=== PATIENT | male | born 1935 | race Caucasian/White ===

== ENCOUNTER 2016-11-14 11:22 | Inpatient (IN) | payer OTHER, BC ==
[2016-11-14] VITALS (10 sets, daily range): BP systolic 118–164; BP diastolic 63–84
[~2016-11-14] VITALS: Ht 182.9 cm; Wt 102.1 kg
--- NOTE | ~2016-11-14 | H ---
[facility] [place] [address] HISTORY AND PHYSICAL Name: MINGO PEACE Room #: 240-P [facility] IN M.R.#: [id number] Admission: 11/14/16 Attend Phys: Dannie Burns MD, Discharge: 11/16/16 Date of : 34 Report #: [id number] THIS REPORT FOR: //name// CC: Ranjeet Burns He is in the CCU 219 HISTORY OF PRESENT ILLNESS: An 81-year-old male admitted from the office today after having 2 weeks of progressive right calf and foot pain. The ultrasound suggested total occlusion of the right SFA, which had been previously stented and had lysis previously, but the last intervention was a year ago, it was upper popliteal. There was prior right SFA and upper popliteal stent grafts in place and they were looked at as recently as the end of September here in the office. He has been maintained on warfarin and Plavix. Although he states that he had stopped his Plavix, I will try to clarify this. But his INR is 2.3 today. He has otherwise been compliant with his medications, some rest discomfort, some coolness, but certainly no numbness or tingling, no neurologic involvement and predominantly symptoms with exertion. So not as symptomatic as he has been in the past. He has had TPA lysis in the past of this, prior to the covered stent placement. There is known occlusion of the right mid anterior tibial artery. He denies any chest pain or anginal complaints. HOME MEDICATIONS: Warfarin; hydrochlorothiazide 12.5; irbesartan 300, Plavix 75, which he may or may not be taking; Coreg 3.125 b.i.d.; Symbicort; Spiriva; omeprazole; potassium; simvastatin 80. PAST MEDICAL HISTORY: Positive for the peripheral vascular disease as stated above with complex revisions of the right SFA and popliteal stents with prior atherectomy and drug-coated balloon initially in 06/16 and then last occlusion was 02/2016 with lysis and then placement of a Viabahn stent, COPD, alcohol, prior tobacco use, BPH, vitamin D deficiency and the carotid disease. ALLERGIES: ANTHONY. FAMILY HISTORY: Negative for premature coronary disease. SOCIAL HISTORY: Prior smoker ____ tobacco, moderate alcohol use. He is retired. No illicit drug use. REVIEW OF SYSTEMS: Essentially negative except for some intermittent right foot pain as described above and some nocturia. PHYSICAL EXAMINATION: VITAL SIGNS: Pulse is 70s, blood pressure 136/80. HEENT: Eyes reveal xanthelasmas. Pharynx is clear. NECK: Shows preserved upstrokes without JVD or bruit. There is a bruit noted [facility] [address] [place] [address] HISTORY AND PHYSICAL Name: MINGO PEACE Room #: 240-P DIS IN M.R.#: [id number] Admission: 11/14/16 Attend Phys: Dannie Burns MD, Discharge: 11/16/16 Date of : 34 Report #: [id number] on the left carotid. LUNGS: Prolonged expiratory phase, but clear. CARDIOVASCULAR: Regular rate and rhythm, S1, S2. ABDOMEN: Soft. No HSM or abdominal bruit. EXTREMITIES: Slightly cool right foot. I cannot palpate the DP or PT on the right, fairly palpable on the left, it is not mottled although slightly more pallor than the left foot. MUSCULOSKELETAL: Generalized arthritic changes. NEUROLOGIC: Intact. ASSESSMENT: 1. Acute/subacute right lower extremity arterial occlusion with history as described above with prior multiple coated stents and revisions. 2. Moderate bilateral carotid disease with a right carotid bruit. 3. Chronic obstructive pulmonary disease, prior tobacco. 4. Hypertension. 5. Hypercholesterolemia. 6. Benign prostatic hypertrophy. RECOMMENDATIONS AND PLAN: We will admit, give vitamin K low dose 5 mg, proceed to the interventional lab with Dr. Kaur for evaluation and possible lysis. Stat laboratory work to be obtained, will admit to the telemetry unit and follow with you. Discussed with the patient in detail and he elects to proceed in this fashion. <ELECTRONICALLY SIGNED> By: Dannie Burns MD, FACC 11/24/16 1232 1433 1505 Dannie Burns MD, FACC /nt
--- NOTE | ~2016-11-14 | D ---
[facility] [place] [address] DISCHARGE SUMMARY Name: MINGO PEACE Room #: [facility] [place] IN M.R.#: [id number] Admission: 11/14/16 Attend Phys: Dannie Burns MD, Discharge: 11/16/16 Date of : 34 Report #: [id number] THIS REPORT FOR: //name// CC: Ranjeet Burns [facility]: The patient is an 81-year-old male who was admitted with an acute/subacute right lower extremity arterial occlusion at the proximal SFA, previously stented. This has been patent for a year. He has been maintained on Plavix and warfarin, had been therapeutic. Diuretic had been recently added. It is not clear as to the inciting incident. Subsequently taken to the interventional lab by Dr. Kaur and had line placement for lysis. This markedly improved the following morning and then successfully redilated and stented. So there was right SFA and popliteal thrombolysis, and then subsequently placement of a 7 x 150 Viabahn stent graft and postdilated to high pressures. There was good flow throughout the SFA and popliteal with 2-vessel runoff. He has been maintained on heparin and warfarin restarted as well as Plavix. His INR is 1.2. He will be given Lovenox b.i.d. to overlap his INR until he is over 2, for at least 2 days. Continue with the antiplatelet regimen. His other home medications will also be restarted. He has followup in 1 month with a right lower extremity Doppler ____ Dr. Kaur, and has followup with me in 6 months. DISCHARGE MEDICATIONS: Warfarin, carvedilol 6.25 b.i.d., Spiriva, Symbicort, potassium, irbesartan 300, simvastatin 40 and Plavix 75. DISCHARGE DIAGNOSES: 1. Acute right lower extremity arterial occlusion with successful thrombolysis and stent placement. 2. Coronary artery disease. 3. Hypertension. 4. Hypercholesterolemia. 5. Chronic obstructive pulmonary disease. 6. Degenerative joint disease. OTHER RECOMMENDATIONS: No lifting for 48 hours. No lying in tub, Jacuzzi or Chinchilla for a week. <ELECTRONICALLY SIGNED> By: Dannie Burns MD, FACC 11/24/16 1232 0913 1002 Dannie Burns MD, FACC /nt
[~2016-11-14 11:22] MED LIST: ASPIR 8181 M1 PO; AVAPRO300 MG PO; CLOPIDOGREL75 MG PO; COREG6.25 MG PO; COUMADIN 5 MG TA5 M1 PO; ENOXAPARIN100 MG/11 SUBQ; HYDROCHLOROTH12.5 M1 PO; OMEPRAZOLE20 M2 PO; PLAVIX 75 MG TA75 M1 PO; PLAVIX 75 MG TA75 MG PO; POTASSIUM20 PO; PRADAXA150 MG PO; SIMVASTATIN40 MG PO; SPIRIVA INH; SYMBICORT160 MCG/4. INH
[2016-11-14 13:25] LABS: HEMATOCRIT 43.5 % (42.0-52.0); HEMOGLOBIN 14.3 gm/dL (14.0-18.0); MCV 91.1 fL (80.0-100.0); RBC 4.77 mil/uL (4.50-6.00); RDW 15.8 % (10.5-14.5); WBC 5.1 thou/uL (4.0-11.0)
[2016-11-14 13:35] LABS: CREATININE 0.8 mg/dL (0.7-1.3); POTASSIUM 4.1 mmol/L (3.5-5.1)
[2016-11-15] VITALS (41 sets, daily range): BP systolic 115–175; BP diastolic 45–95
[2016-11-15 04:34] LABS: CALCIUM 8.4 mg/dL (8.5-10.1); CREATININE 0.6 mg/dL (0.7-1.3); POTASSIUM 3.6 mmol/L (3.5-5.1)
[2016-11-15 04:44] LABS: HEMATOCRIT 39.3 % (42.0-52.0); HEMOGLOBIN 13.2 gm/dL (14.0-18.0); MCH 30.2 pg (26.0-34.0); MCHC 33.6 g/dL (28.0-37.0); MCV 90.1 fL (80.0-100.0); RBC 4.36 mil/uL (4.50-6.00); RDW 15.5 % (10.5-14.5); WBC 4.8 thou/uL (4.0-11.0)
[2016-11-15 13:58] LABS: INR 1.5; PROTIME 14.8 Seconds (9.3-11.4)
[2016-11-16] VITALS (15 sets, daily range): BP systolic 113–165; BP diastolic 56–81
[2016-11-16 02:56] LABS: HEMATOCRIT 41.7 % (42.0-52.0); HEMOGLOBIN 13.6 gm/dL (14.0-18.0); MCH 29.9 pg (26.0-34.0); MCHC 32.7 g/dL (28.0-37.0); MCV 91.5 fL (80.0-100.0); RBC 4.56 mil/uL (4.50-6.00); RDW 15.7 % (10.5-14.5); WBC 6.5 thou/uL (4.0-11.0)
[2016-11-16 03:03] LABS: CALCIUM 8.4 mg/dL (8.5-10.1); CREATININE 0.7 mg/dL (0.7-1.3); POTASSIUM 3.7 mmol/L (3.5-5.1)
[2016-11-16 08:46] LABS: INR 1.2; PROTIME 12.2 Seconds (9.3-11.4)
[2016-11-16] MEDS ORDERED: ENOXAPARIN100 MG/11 SUBQ (09:07)
[2016-11-16 10:41] LABS: INR 1.2
[2016-11-16 11:33] LABS: APTT 39.4 Seconds (24.5-32.8)
== END 2016-11-16 13:30 | disposition home or self-care (01) | DRG 271 ==
LOC: ICU 11:22 → 2N 11:22 → ICU 17:53
PROVIDERS: Internal Medicine; Internal Medicine Cardiovascular Disease; Nuclear Medicine Nuclear Cardiology; Nurse Practitioner Adult Health
DX: I73.9 Peripheral vascular disease, unspecified (principal); E87.1 Hypo-osmolality and hyponatremia; I25.10 Atherosclerotic heart disease of native coronary artery without angina pectoris; I10 Essential (primary) hypertension; E78.00 Pure hypercholesterolemia, unspecified; J44.9 Chronic obstructive pulmonary disease, unspecified; M19.90 Unspecified osteoarthritis, unspecified site; N40.0 Benign prostatic hyperplasia without lower urinary tract symptoms; R09.89 Other specified symptoms and signs involving the circulatory and respiratory systems; I65.23 Occlusion and stenosis of bilateral carotid arteries; F10.10 Alcohol abuse, uncomplicated; Z87.891 Personal history of nicotine dependence; Z88.8 Allergy status to other drugs, medicaments and biological substances
CPT/HCPCS: 10078

== ENCOUNTER 2018-02-09 12:25 | Emergency (ER) | payer OTHER, BC ==
[~2018-02-09] VITALS: Ht 177.8 cm; Wt 81.7 kg
[~2018-02-09 12:25] MED LIST changes: +ATORVASTATIN CA40 MG PO; +CARDIZEM CD240 MG PO; +COUMADIN 2.5MG2.5 M1 PO; +HYDROCODON-ACE1 EAC7 PO; +PACERONE 200 M200 MG PO; +PREDNISONE 20 M20 MG PO; +TORSEMIDE20 MG PO
[2018-02-09 14:38] VITALS: BP 169/70
== END 2018-02-09 14:45 | disposition home or self-care (01) ==
LOC: ER 12:25
DX: S61.217A Laceration without foreign body of left little finger without damage to nail, initial encounter (principal); I25.10 Atherosclerotic heart disease of native coronary artery without angina pectoris; E78.00 Pure hypercholesterolemia, unspecified; I10 Essential (primary) hypertension; J44.9 Chronic obstructive pulmonary disease, unspecified; E55.9 Vitamin D deficiency, unspecified; N40.0 Benign prostatic hyperplasia without lower urinary tract symptoms; Z95.1 Presence of aortocoronary bypass graft; Z87.891 Personal history of nicotine dependence; Z79.01 Long term (current) use of anticoagulants; W20.8XXA Other cause of strike by thrown, projected or falling object, initial encounter; Y93.89 Activity, other specified; Y92.89 Other specified places as the place of occurrence of the external cause; Y99.8 Other external cause status

== ENCOUNTER 2018-03-06 08:48 | Inpatient (IN) | payer OTHER, BC ==
[2018-03-06] VITALS (8 sets, daily range): BP systolic 157–174; BP diastolic 73–81
[~2018-03-06] VITALS: Ht 182.9 cm; Wt 86.2 kg
--- NOTE | ~2018-03-06 | EKG ---
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 : 1935 Requested By: Bryant Galindo Order Number: [id number] MD: Giovani Hodge Measurements Intervals Hulen Rate: 70 P: 12 MI: 196 QRS: -8 QRSD: 101 T: 25 QT: 451 QTc: 487 Interpretive Statements Sinus rhythm Left ventricular hypertrophy Borderline prolonged QT interval Compared to ECG 08/15/2017 13:28:29 Sinus rhythm has replaced atrial fibrillation Electronically Signed On 03-06-2018 16:36:21 [employer] by Giovani Hodge [email or web address] <ELECTRONICALLY SIGNED> By: Giovani Hodge MD, [facility] 03/06/18 1636 0905 0905 Giovani Hodge MD, [facility] /EPI
--- NOTE | ~2018-03-06 | EKG ---
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 : 1935 Requested By: Dannie Burns Order Number: [id number] MD: Giovani Hodge Measurements Intervals Jensen Rate: 65 P: 44 IA: 206 QRS: -6 QRSD: 103 T: 39 QT: 428 QTc: 445 Interpretive Statements Sinus rhythm Abnormal R-wave progression, early transition Borderline T wave abnormalities Compared to ECG 03/06/2018 09:05:26 T-wave abnormality now present Electronically Signed On 03-07-2018 9:11:17 [employer] by Giovani Hodge [email or web address] <ELECTRONICALLY SIGNED> By: Giovani Hodge MD, [facility] 03/07/18910 4 4 Giovani Hodge MD, [facility] /EPI
--- NOTE | ~2018-03-06 | HC ---
[facility] [place] [address] CONSULTATION Name: MINGO PEACE Room #: 361-P [facility] IN M.R.#: [id number] Admission: 03/06/18 Attend Phys: Mateo Molina MD Discharge: 03/08/18 Date of : 34 Report #: [id number] THIS REPORT FOR: //name// CC: Mateo Iqbal DATE OF SERVICE: 03/07/2018 CHIEF COMPLAINT: Lacerations to the face and hands. HISTORY OF PRESENT ILLNESS: This is an 82-year-old male patient who reportedly had fallen, sustaining lacerations to his right hand and right side of his face. He had a previous laceration to his left fifth finger on the volar surface and underwent primary repair. The area has apparently opened again. I have been asked to see him with regard to wound care. The patient seems a little bit confused, but is cooperative. He normally lives at home alone. PAST MEDICAL HISTORY: Atrial fibrillation, hypertension, hyperlipidemia, coronary artery disease or peripheral arterial disease, congestive heart failure, chronic opiate use, recurrent falls with multiple injuries. ALLERGIES: Include none. MEDICATIONS: Include amiodarone, diltiazem, hydrocodone, atorvastatin, Plavix. FAMILY HISTORY: Noncontributory. SOCIAL HISTORY: Positive for alcohol use. He is a former smoker, having smoked a pack and half per day for 40 years. FAMILY HISTORY: Noncontributory. REVIEW OF SYSTEMS: CONSTITUTIONAL: The patient denies fever, chills or weight loss. NEUROLOGICAL: The patient denies focal weakness, numbness or tingling. EYES: The patient denies visual changes, redness or drainage. ENT: The patient denies earache, nasal drainage or sore throat. CARDIOVASCULAR: The patient denies chest pain, palpitation or diaphoresis. PULMONARY: The patient denies cough or shortness of breath. GASTROINTESTINAL: The patient denies nausea, vomiting or abdominal pain. ORTHOPEDIC: The patient does note pain and swelling to his right hand. Other systems in a 14-point review of systems are negative. PHYSICAL EXAMINATION: VITAL SIGNS: At this time include pulse 70, respiratory rate of 20, blood [facility] [address] [place] [address] CONSULTATION Name: MINGO PEACE Room #: 361-P [facility] IN M.R.#: [id number] Admission: 03/06/18 Attend Phys: Mateo Molina MD Discharge: 03/08/18 Date of : 34 Report #: [id number] pressure 154/76, temperature 98.3. GENERAL: This is a chronically ill-appearing male patient who appears to be in minimal distress. HEENT: Head normocephalic. Nose and throat are clear. Facial structures are stable. He has a small laceration to his right zygomatic region that appears to be relatively superficial with minimal bleeding. NECK: Supple. LUNGS: Clear. HEART: Irregular. ABDOMEN: Soft. Bowel sounds are present. EXTREMITIES: Show a partially healed laceration with some separation on the volar aspect of the left fifth finger. He has multiple lacerations to the third, fourth, and fifth fingers of the right hand. NEUROLOGIC: The patient is alert, oriented, and appropriate. LABORATORY DATA: Includes sodium 138, potassium 3.3, chloride 106, CO2 27, BUN 20, creatinine 1.0, glucose 86, calcium is 8.3. INR is 1.7. White blood cell count is 4.8 with hemoglobin 10.3. CLINICAL IMPRESSION: Laceration to the face, right hand, and older laceration to the left hand. RECOMMENDATIONS: At this point in time, we will recommend topical bacitracin ointment to the face and otherwise left open to air. Recommend Xeroform gauze and bacitracin ointment to the right hand, as well as to the left hand laceration. I think this will heal up quite well without any further corrective intervention. All questions have been answered. I appreciate having been asked to see him in consultation. <ELECTRONICALLY SIGNED> By: Vinay Langston MD 03/10/18 0018 [id number] 0005 Vinay Langston MD /nt
--- NOTE | ~2018-03-06 | 2DMMODE ---
[facility] [address] [place] [address] 2 D/M-MODE ECHOCARDIOGRAM Name: MINGO PEACE Room #: 361-P ADM IN M.R.#: [id number] Admission: 03/06/18 Attend Phys: Mateo Molina MD Discharge: Date of : 34 Date of Service: 03/07/18 [facility] Report #: [id number] THIS REPORT FOR: //name// APPROVED REPORT Study performed: 03/07/2018 10:35:47 EXAM: Comprehensive 2D, Doppler, and color-flow Echocardiogram Patient Location: Bedside Room #: 361 Status: routine BSA: 2.08 HR: 64 bpm BP: 151/71 mmHg Rhythm: NSR Other Information Study Quality: Good Indications Dizzy. Hx: CAD, PAF, PVD, COPD, HTN, HLP 2D Dimensions RVDd: 40.80 mm IVSd: 13.46 (7-11mm) LVOT Diam: 22.37 (18-24mm) LVDd: 45.98 mm PWd: 10.39 (7-11mm) Ascending Ao: 33.84 (22-36mm) LVDs: 29.25 (25-40mm) Aortic Root: 34.66 mm Volumes Left Atrial Volume (Systole) Single Plane 4CH: 71.48 mL Single Plane 2CH: 76.67 mL LA ESV Index: 38.00 mL/m2 Aortic Valve AoV Peak José.: 3.50 m/s AO Peak Gr.: 49.07 mmHg LVOT Max P.40 mmHg AO Mean Gr.: 25.33 mmHg AO V2 Mean: 2.39 m/s LVOT Max V: 1.26 m/s AO V2 VTI: 86.06 cm RANDALL Vmax: 1.42 cm2 Mitral Valve E/A Ratio: 0.8 [facility] [address] [place] [address] 2 D/M-MODE ECHOCARDIOGRAM Name: GAEB PEACEN Room #: 361-P ADM IN M.R.#: [id number] Admission: 03/06/18 Attend Phys: Mateo Molina MD Discharge: Date of : 34 Date of Service: 03/07/18 1300 Report #: [id number] MV Decel. Time: 197.11 ms MV E Max José.: 0.84 m/s MV A José.: 0.99 m/s MV PHT: 57.16 ms IVRT: 69.20 ms Pulmonary Valve PV Peak José.: 0.93 m/s PV Peak Gr.: 3.44 mmHg Pulmonary Vein P Vein S: 0.44 m/s P Vein A: 0.32 m/s P Vein D: 0.37 m/s P Vein A Dur.: 115.3 msec P Vein S/D Ratio: 1.19 Tricuspid Valve TR Peak José.: 3.12 m/s RAP Estimate: 10.00 mmHg TR Peak Gr.: 38.88 mmHg PA Pressure: 49.00 mmHg Left Ventricle The left ventricle is normal size. There is normal LV segmental wall motion. Mild basal septal hypertrophy is present. Left ventricular systolic function is normal. LVEF is 60-65%. Mild diastolic dysfunction is present (impaired relaxation pattern). Right Ventricle The right ventricle is normal size. The right ventricular systolic function is normal. Atria Left atrium is mildly dilated. Right atrium is mildly dilated. Aortic Valve Aortic valve leaflets are moderately thickened and calcified. Mild aortic regurgitation. There is moderate valvular aortic stenosis. Calculated aortic valve area is 1.4 cm2 with maximum pressure gradient of 49 mmHg and mean pressure gradient of 25 mmHg. Mitral Valve Mild mitral annular calcification. Mild mitral regurgitation. No evidence of mitral valve stenosis. Tricuspid Valve The tricuspid valve is normal in structure. Mild to moderate tricuspid regurgitation. Estimated PAP is 45mmHg. [facility] [address] [place] [address] 2 D/M-MODE ECHOCARDIOGRAM Name: MINGO PEACE Room #: 361-P [facility] IN M.R.#: [id number] Admission: 03/06/18 Attend Phys: Mateo Molina MD Discharge: Date of : 34 Date of Service: 03/07/18 [facility] Report #: [id number] Pulmonic Valve The pulmonary valve is normal in structure. Trace pulmonic regurgitation. Great Vessels The aortic root is normal in size. The ascending aorta is normal in size. IVC is normal in size and collapses <50% with inspiration. Pericardium There is no pericardial effusion. <Conclusion> Left ventricular systolic function is normal. There is normal LV segmental wall motion. LVEF is 60-65%. Mild diastolic dysfunction Both atria are mildly dilated. Aortic valve leaflets are moderately thickened and calcified, moderate valvular aortic stenosis, mild insufficiency. Calculated aortic valve area is 1.4 cm2 with maximum pressure gradient of 49 mmHg and mean pressure gradient of 25 mmHg. Mild mitral annular calcification. Mild mitral regurgitation. Mild to moderate tricuspid regurgitation. Estimated pulmonary artery pressure of 45mmHg. There is no pericardial effusion. <ELECTRONICALLY SIGNED> By: Giovani Hodge MD, FACC 03/07/18 1300 1300 Chandra Hodge MD, FACC /INF
--- NOTE | ~2018-03-06 | HC ---
[facility] [place] [address] CONSULTATION Name: MINGO PEACE Room #: 361-P ADM IN M.R.#: [id number] Admission: 03/06/18 Attend Phys: Mateo Molina MD Discharge: Date of : 34 Report #: [id number] THIS REPORT FOR: //name// CC: Mateo Iqbal DATE OF SERVICE: 03/07/2018 HISTORY OF PRESENT ILLNESS: This is an 82-year-old white male, who had a fall in a parking lot. He denies any loss of consciousness. He sustained multiple bruises with striking his face, right hand, elbow. He did not initially come in, but his son checked in on him the following day and brought him in for evaluation. He is on Coumadin for AFib and his INR was increased to 4.6. Cardiology saw him. It was felt that the fall was likely due to probable pain medication along with ETOH. He did report one shot of whiskey on the evening of the fall. The patient denies any specific loss of consciousness. He reports some dizziness, but appears to be feeling better. He is now being evaluated in rehabilitation consultation. PAST MEDICAL HISTORY: Includes atrial fibrillation, hypertension, hyperlipidemia, coronary artery disease, history of peripheral vascular disease with peripheral arterial disease, CHF, chronic back pain with opioid usage, and history of recurrent falls. MEDICATIONS: Please see the full medication listing. ALLERGIES: No known drug allergies. SOCIAL HISTORY: He lives in a house by himself. He used a cane one step in, was driving one floor. There is a son that is involved. REVIEW OF SYSTEMS: He did not offer any current complaints of chest pain, shortness of breath, or abdominal discomfort. He has some discomfort regarding his face and hand as expected. No other specific focal extremity pain complaints. He does have the chronic low back pain. PHYSICAL EXAMINATION: GENERAL: The patient is an 82-year-old white male in no obvious distress. VITAL SIGNS: Last recorded temperature is 97.9, pulse is 65, respirations 18, and blood pressure is 151/71. NEUROLOGIC: He is alert, pleasant, appropriate, follows commands without difficulty. He has ecchymoses noted over his right maxillary area. EOMs appeared to be full. No obvious visual field neglect. Facies appeared symmetric. His right hand is wrapped or he had some trauma to the fourth and fifth digits. This appears to be superficial trauma with dressings in place. I could not detect any obvious focal weakness. He otherwise has functional range [facility] [address] [place] [address] CONSULTATION Name: MINGO PEACE Room #: 361-P [facility].#: [id number] Admission: 03/06/18 Attend Phys: Mateo Molina MD Discharge: Date of : 34 Report #: [id number] of motion of both upper extremities. Strength is grade 4-/5. DTRs are trace to 1. Lower extremities, no focal calf swelling. Functional range of motion with strength grade 4-/5. DTRs are trace to 1. In occupational therapy, he did ambulate to the bathroom. He was contact guard to min assist. He is demonstrating some decreased balance. ASSESSMENT: The patient is an 82-year-old white male with following problem list: 1. Closed head injury with dizziness and fall. No noted loss of consciousness. 2. Hematoma, right maxillary area involving right eye, multiple lacerations. 3. History of frequent falls, 3 in the past year. 4. ETOH usage limited per report. 5. Atrial fibrillation, he is anticoagulated. 6. Hypertension. 7. Hyperlipidemia. 8. Peripheral vascular disease with peripheral arterial disease. 9. History of congestive heart failure. 10. Chronic back pain with opioid usage. PLAN: Therapy evaluations are underway. We will see how the patient does functionally and proceed from there. He is hoping to return directly home, but we will need to see how he does in therapies. Thank you for asking us to assist in this patient's care. By: 1324 0147 Wilfredo Goldberg MD /KAIT
[2018-03-06 09:06] LABS: ABSOLUTE NEUTROPHILS 4.9 thou/uL (1.4-8.2); BASOPHILS 0.6 % (0.0-2.0); HEMATOCRIT 35.1 % (42.0-52.0); MCH 31.6 pg (26.0-34.0); MCHC 34.1 g/dL (28.0-37.0); MCV 92.8 fL (80.0-100.0); MONOCYTES 6.2 % (1.0-8.0); PLATELET COUNT 177 thou/uL (150-400); POLYS 81.2 % (36.0-66.0); RBC 3.78 mil/uL (4.50-6.00); RDW 14.4 % (10.5-14.5); WBC 6.1 thou/uL (4.0-11.0)
[2018-03-06 09:13] LABS: ANION GAP 8 mmol/L (7-16); BUN 22 mg/dL (7-18); CALCIUM 9.1 mg/dL (8.5-10.1); CHLORIDE 104 mmol/L (98-107); CO2 28 mmol/L (21-32); GLUCOSE 98 mg/dL (74-106); POTASSIUM 3.4 mmol/L (3.5-5.1); SODIUM 140 mmol/L (136-145)
[2018-03-06 09:18] LABS: PROTIME 47.8 Seconds (9.3-11.4)
[2018-03-06 09:21] LABS: ALBUMIN 3.2 g/dL (3.4-5.0); SGOT 52 U/L (15-37); SGPT 101 U/L (30-65); TOTAL BILIRUBIN 1.1 mg/dL (<0.1-1.0); TOTAL PROTEIN 7.2 g/dL (6.4-8.2); TROPONIN-I <0.06 ng/mL (<0.06)
[2018-03-06 09:23] LABS: INR 4.6
[2018-03-06] MEDS ORDERED: COUMADIN 5 MG TA5 M1 PO (10:21)
[2018-03-06] MEDS ORDERED: BISACODYL SUPP10 MG RECTAL (10:22)
[2018-03-06] MEDS ORDERED: LIDODERM1 EACH TOP (10:26)
[2018-03-06] MEDS ORDERED: MIRALAX17 GM PO (10:27)
[2018-03-06] MEDS ORDERED: PREVACID 24HR15 MG PO (10:29)
[2018-03-06] MEDS ORDERED: SENNA-S TABLET1 EACH PO (10:30)
[2018-03-06] MEDS ORDERED: DEMADEX20 MG PO (10:31)
[2018-03-06] MEDS ORDERED: TUMS200 MG PO (10:32)
[2018-03-06] MEDS ORDERED: VITAMIN B-121000 MC1 PO (10:33)
[2018-03-06 12:57] LABS: URINE BILIRUBIN NEGATIVE (Negative); URINE BLOOD TRACE (Negative); URINE COLOR YELLOW; URINE GLUCOSE-RANDOM* NEGATIVE (Negative); URINE KETONES 1+ (Negative); URINE PROTEIN (DIPSTICK) TRACE (Negative); URINE SPECIFIC GRAVITY 1.025 (1.005-1.035)
[2018-03-06 12:59] LABS: URINE LEUKOCYTES-REFLEX TRACE (Negative); URINE NITRITE-REFLEX POSITIVE (Negative)
[2018-03-06 13:00] LABS: URINE CLARITY SL HAZY
[2018-03-06 13:08] LABS: AMP/METHAMP Negative (Negative); BARBITURATES Negative (Negative); BENZODIAZEPINES Negative (Negative); COCAINE Negative (Negative); METHADONE Negative (Negative); OPIATES POSITIVE (Negative); PCP Negative (Negative)
[2018-03-06 13:11] LABS: SQUAMOUS None Seen /LPF (0-3)
[2018-03-06 13:12] LABS: BACTERIA-REFLEX >30 Many /HPF (None Seen); CASTS None Seen /LPF (None Seen); CRYSTALS None Seen /LPF (None Seen); URINE RBC 0-2 Rare /HPF (0-2)
[2018-03-06] MEDS ORDERED: PREVACID15 MG PO (13:20)
[2018-03-06 14:11] LABS: MAGNESIUM 1.9 mg/dL (1.8-2.4)
[2018-03-07 05:47] LABS: ABSOLUTE NEUTROPHILS 3.7 thou/uL (1.4-8.2); EOSINOPHILS 1.5 % (0.0-3.0); HEMOGLOBIN 10.2 gm/dL (14.0-18.0); MCH 31.8 pg (26.0-34.0); MCHC 33.8 g/dL (28.0-37.0); MCV 94.1 fL (80.0-100.0); MONOCYTES 8.4 % (1.0-8.0); PLATELET COUNT 169 thou/uL (150-400); POLYS 69.1 % (36.0-66.0); RBC 3.19 mil/uL (4.50-6.00); RDW 14.9 % (10.5-14.5); WBC 5.4 thou/uL (4.0-11.0)
[2018-03-07 05:59] LABS: CALCIUM 8.3 mg/dL (8.5-10.1); MAGNESIUM 1.9 mg/dL (1.8-2.4); POTASSIUM 3.3 mmol/L (3.5-5.1)
[2018-03-07 06:01] LABS: INR 3.4; PROTIME 35.3 Seconds (9.3-11.4)
[2018-03-07 07:48] VITALS: BP 151/71
[2018-03-07 16:02] VITALS: BP 182/84
[2018-03-07 16:09] VITALS: BP 158/70
[2018-03-07 19:30] VITALS: BP 127/67
[2018-03-07 19:40] VITALS: BP 154/76
[2018-03-08 05:00] VITALS: BP 149/74
[2018-03-08 05:54] LABS: ABSOLUTE NEUTROPHILS 3.3 thou/uL (1.4-8.2); BASOPHILS 0.9 % (0.0-2.0); EOSINOPHILS 2.1 % (0.0-3.0); HEMATOCRIT 29.7 % (42.0-52.0); HEMOGLOBIN 10.3 gm/dL (14.0-18.0); LYMPHOCYTES 21.7 % (24.0-44.0); MCH 32.9 pg (26.0-34.0); MCHC 34.8 g/dL (28.0-37.0); MCV 94.5 fL (80.0-100.0); MONOCYTES 7.4 % (1.0-8.0); PLATELET COUNT 165 thou/uL (150-400); POLYS 67.9 % (36.0-66.0); RBC 3.14 mil/uL (4.50-6.00); WBC 4.8 thou/uL (4.0-11.0)
[2018-03-08 05:59] LABS: INR 2.5; PROTIME 26.4 Seconds (9.3-11.4)
[2018-03-08 07:25] VITALS: BP 145/70
[2018-03-08 09:17] LABS: SGOT 40 U/L (15-37); SGPT 75 U/L (30-65)
[2018-03-08 16:44] VITALS: BP 162/73
== END 2018-03-08 18:06 | DRG 604 ==
LOC: ER 08:48 → EROBS 11:24 → 3W 11:24
PROVIDERS: Hospitalist; Nurse Practitioner; Nurse Practitioner Adult Health; Physician Assistant
PROC: 0HQ1XZZ Repair Face Skin, External Approach (ICD-10-PCS; principal; 2018-03-06)
DX: S01.81XA Laceration without foreign body of other part of head, initial encounter (principal); E43 Unspecified severe protein-calorie malnutrition; N39.0 Urinary tract infection, site not specified; F11.20 Opioid dependence, uncomplicated; M84.48XA Pathological fracture, other site, initial encounter for fracture; S61.411A Laceration without foreign body of right hand, initial encounter; E78.00 Pure hypercholesterolemia, unspecified; J44.9 Chronic obstructive pulmonary disease, unspecified; N40.0 Benign prostatic hyperplasia without lower urinary tract symptoms; M51.36 Other intervertebral disc degeneration, lumbar region; I73.9 Peripheral vascular disease, unspecified; I11.0 Hypertensive heart disease with heart failure; G89.29 Other chronic pain; M54.9 Dorsalgia, unspecified; I50.9 Heart failure, unspecified; I25.10 Atherosclerotic heart disease of native coronary artery without angina pectoris; S09.90XA Unspecified injury of head, initial encounter; H57.89 Other specified disorders of eye and adnexa; E78.5 Hyperlipidemia, unspecified; E87.6 Hypokalemia; Z60.2 Problems related to living alone; I65.29 Occlusion and stenosis of unspecified carotid artery; I48.0 Paroxysmal atrial fibrillation; R29.6 Repeated falls; K21.9 Gastro-esophageal reflux disease without esophagitis; K59.00 Constipation, unspecified; W18.39XA Other fall on same level, initial encounter; Y93.89 Activity, other specified; Y92.89 Other specified places as the place of occurrence of the external cause; Y99.8 Other external cause status; Z87.891 Personal history of nicotine dependence; Z79.01 Long term (current) use of anticoagulants; Z95.820 Peripheral vascular angioplasty status with implants and grafts; Z86.718 Personal history of other venous thrombosis and embolism; Z68.25 Body mass index [BMI] 25.0-25.9, adult
CPT/HCPCS: 10879

== ENCOUNTER 2018-03-08 10:27 | Inpatient (IN) | payer OTHER, BC ==
[~2018-03-08] VITALS: Ht 182.9 cm; Wt 92.1 kg
[~2018-03-08 10:27] MED LIST changes: +BISACODYL SUPP10 MG RECTAL; +DEMADEX20 MG PO; +LIDODERM1 EACH TOP; +MIRALAX17 GM PO; +PREVACID 24HR15 MG PO; +PREVACID15 MG PO; +SENNA-S TABLET1 EACH PO; +TUMS200 MG PO; +VITAMIN B-121000 MC1 PO
[2018-03-08 18:21] VITALS: BP 165/72
--- NOTE | 2018-03-08 18:47 | NUR ---
TO UNIT FROM 361 BY WC, ACCOMPANIED BY VOLUNTEER. ORIENTED TO UNIT. MED LIST FAXED TO PHARMACY. ADMISSION STARTED.
--- NOTE | 2018-03-09 02:17 | NUR ---
ASSUMED CARE AT START OF SHIFT ,DISCUSSED PLAN OF CARE PT VERBALIZED UNDERSTANDING AND AGREEABLE. RIGHT HAND WITH DRESING INTACT. PT C/O BACK PAIN , CALLED AND RECIEVED ORDER FOR TRAMADOL. RESTED WELL THROUGHOUT HOURLY ROUNDS. WILL CONINUTE WITH CURREMT PLAN OF CARE.
[2018-03-09 06:11] LABS: HEMATOCRIT 32.4 % (42.0-52.0); HEMOGLOBIN 11.1 gm/dL (14.0-18.0); MCH 31.9 pg (26.0-34.0); MCHC 34.2 g/dL (28.0-37.0); MCV 93.4 fL (80.0-100.0); RBC 3.46 mil/uL (4.50-6.00); RDW 15.2 % (10.5-14.5); WBC 5.7 thou/uL (4.0-11.0)
[2018-03-09 06:16] LABS: INR 1.7; PROTIME 17.5 Seconds (9.3-11.4)
[2018-03-09 06:19] LABS: CALCIUM 8.9 mg/dL (8.5-10.1); POTASSIUM 3.1 mmol/L (3.5-5.1)
[2018-03-09 08:10] VITALS: BP 127/77
[2018-03-09 08:15] VITALS: BP 120/63
[2018-03-09 08:20] VITALS: BP 138/88
--- NOTE | 2018-03-09 13:00 | NUR ---
cm visited with pt at bedside. intro to team meeting, and dcp. goes by bud, pleasant with some forgetfulness. " home alone, 1 step in to home, then 13 with hr to basement and don't go down there. have cane for outside home. have grab bars. no home oxygen or btx machine. still drive. manage own medication. been to rehab over by facility [facility]. drt and son in area and help if needed. run own errands. still cook. 1 fall last in last 6 months."/ema. will cont following as needed for dc needs.
--- NOTE | 2018-03-09 17:32 | NUR ---
WOUND CONSULT: PT. WAS SEEN TODAY BY DR. SOTO AND MYSELF. PT. WAS BEING FOLLOWED ON THE ACUTE SIDE OF THE HOSPITAL PRIOR TO TRANSFER. PT. HAS LACERATIONS TO HIS RIGHT CHEECK, RIGHT HAND AND LEFT PINKY. ALL WOUNDS ARE HEALING WELL. RECOMMENDATION: CONTINUE WITH CURRENT PLAN OF CARE. PT. AND STAFF NURSE WERE INSTRUCTED ON PLAN OF CARE.
--- NOTE | 2018-03-09 19:54 | NUR ---
ASSUME PT CARE AT 0700. ALERT AND ORIENTED X4, TELIDA, ABLE TO VOICE HIS NEEDS. C/O MID BACK PAIN. RATED PAIN 8/10, GAVE PRN TRAMADOL FELT SOME RELIEF BUT NOT MUCH. POTASSIUM 3.1 NOTIFIED , OBTAINED SCHEDULED POTASSIUM 40MEG BID. RECEIVED ORDER FOR HYDROCODONE. GAVE HYDROCODONE, PAIN GETS BETTER AND DOWN TO 4/10, LACERATION ON CHEEK, LEFT PINKY AND RIGHT HAND. WOUND NURSE CAME TO SEE PT TODAY, GAVE ORDER FOR BACTROBAN. INR DAILY 1.7 TODAY. REASSESSMENT PER CHART. LAST BM WAS 5 DAYS AGO. GAVE COLACE, SENOKOT PRN AND MIRALAX SCHEDULED WITH PRUNE JUICE, PASSING GAS, NO RESULT. IV ON RIGHT WRIST. OT GAVE PT SHOWER TODAY. PT UP AND PARTICIPATED WELL WITH THERAPISTS . PT UP WITH MIN ASSIST WITH WALKER. FALL PRECAUTION IN PLACE, CALL APPROPRIATELY. BED ALARM IS ON. GAVE REPORT TO NIGHT NURSE TO CONTINUE TO MONITOR.
[2018-03-09 21:08] VITALS: BP 163/81
--- NOTE | 2018-03-10 04:27 | NUR ---
PATIENT ALERT AND ORIENTED X4. VERY [place]. UP WITH ONE ASSIST. USING URINAL, NO BM AT TIME OF NOTE. RESTED QUIETLY DURING THE NIGHT. MEDICATED X1 FOR PAIN WITH GOOD RESULTS. 2LNC, NO SOA NOTED. WILL MONITOR.
[2018-03-10 05:36] LABS: INR 1.3
[2018-03-10 07:45] VITALS: BP 136/64
[2018-03-10 07:47] VITALS: BP 116/63
[2018-03-10 07:49] VITALS: BP 126/56
--- NOTE | 2018-03-10 10:41 | NUR ---
ASSUME PT CARE AT 0700. ALERT AND ORIENTED X4, ABLE TO VOICE HIS NEEDS. SLEPT WELL, BUT SAID PT KEPT WAITING ME UP. C/O MID BACK PAIN, PRN TRAMADOL GIVEN. TOLERATE WITH OT AND PT THIS AM. TITRATE OXYGEN THIS AM. DISCUSSED ABOUT DEEP BREATHING. SAT 94 % ON 2L. ENCOURAGED THERAPIST TO CHECK OXYGEN AND APPLY PRN OXYGEN AT 1-2L NEED. REASSESSED PER CHART. PT WAS CONSTIPATED FOR 6 DAYS. GAVE LAXATIVES SCHEDULED AND PRN THIS AM. HAD LARGE SOFT BM THIS AM. PTSAID HE FEELS BETTER. PT IS UP TO RECLINER, WATCHING TV. FALL PRECAUTION IN PLACE. CHAIR ALARM IS ON. ENCOURAGED PT TO CALL FOR HELP. CALL LIGHT WITHIN REACH. PT HAS [place], WEARING HEARING AIDS. WOUND CARE DONE PER ORDERED. CHECK FREQUENTLY FOR SAFETY AND NEEDS. HIS GOALS TODAY ARE TO WORK WITH STAFF TO GET STRONGER. WILL CONTINUE TO MONITOR.
[2018-03-10 19:35] VITALS: BP 144/73
--- NOTE | 2018-03-11 04:17 | NUR ---
ASSUMED CARE OF PT AT 1915. PT ALERT AND ORIENTED X4, CALM AND COOPERATIVE. C/O BACK PAIN X1, OXYCODONE GIVEN AT HS WITH GOOD RELIEF STATED. RIGHT HAND DRSG C/D/I. PT HAS APPEARED TO BE SLEEPING WHEN CHECKED ON HOURLY ROUNDS. FALL PRECAUTIONS IN PLACE.
[2018-03-11 07:07] LABS: INR 1.2; PROTIME 12.6 Seconds (9.3-11.4)
[2018-03-11 08:00] VITALS: BP 149/72
[2018-03-11 08:02] VITALS: BP 142/71; BP 151/70
--- NOTE | 2018-03-11 12:07 | NUR ---
ASSUMED PT CARE AT 0700H. PT VOICES NO CONCERNS. PT GOAL IS MAINTAIN PAIN CONTROL. PT HAS NO S/S OF DISTRESS. PT R. CHEECK PAUL CLEAN AND DRY. PT R. HAND AND L. FINGER DRG CHANGE; CLEAN, DRY AND INTACT. PT AMBULATED TO THE CHEW WAY. PT TRANSFERED TO CHAIR AND BACK TO BED. PT BED ALARM ON AND FALL PRECAUTION. PT CALL LIGHT AND PERSONAL BELONGINGS WITHIN REACH. PT CONTINUES TO BE MONITORED FOR SAFETY.
[2018-03-11 17:28] VITALS: BP 136/58
[2018-03-11 20:19] VITALS: BP 146/55
--- NOTE | 2018-03-11 22:47 | NUR ---
PT ALERT AND ORIENTED X 4. 02 ON AT 1L PER NC CONT. LUNGS WITH WHEEZES ANTERIORLY. DRESSINGS TO RIGHT HAND AND LEFT FINGER C/D/I. PT DENIES PAIN OR DISCOMFORT. BED ALARM ON FOR SAFETY. PT APPEARS TO BE SLEEPING ON HOURLY ROUNDS.
[2018-03-12 04:10] LABS: INR 1.2; PROTIME 12.5 Seconds (9.3-11.4)
[2018-03-12 08:16] VITALS: BP 143/75
--- NOTE | 2018-03-12 09:25 | NUR ---
ASSUME PT CARE AT 0700. [place], ALERT AND ORIENTED X4, ABLE TO VOICE HIS NEEDS. REPORTED DIDN'T SLEEP WELL LAST NIGHT. NIGHT NURSE SAID HE DIDN'T ASK FOR ANYTHING FOR PAIN AND SLEEP LAST NIGHT. PT RATED BACK PAIN 4/10 THIS AM. AND PAIN INCREASE TO 8/10 WHEN GOT UP. MORNING MEDS AND OXYCODONE PRN GIVEN. DESAT 90 % ON RA. ENCOURAGED THERAPIST TO CHECK OXYGEN AND APPLY PRN OXYGEN AT 1-2L NEED. REASSESSED PER CHART. PT HAS HX OF CONSTIPATION. GAVE LAXATIVES SCHEDULED WITH PRUNE JUICE. REASSESSMENT PER CHART. WILL CONTINUE TO MONITOR BM. OT GAVE PT SPONGE BATH AT BEDSIDE. DRESSING ON RIGHT ARM C/D/I. WILL CHANGE LATER. PT IS UP TO RECLINER, WATCHING TV. FALL PRECAUTION IN PLACE. CHAIR ALARM IS ON. ENCOURAGED PT TO CALL FOR HELP. CALL LIGHT WITHIN REACH. PT HAS G[place], WEARING HEARING AIDS. CHECK FREQUENTLY FOR SAFETY AND NEEDS. HIS GOALS TODAY ARE TO WORK WITH STAFF TO GET STRONGER. WILL CONTINUE TO MONITOR.
[2018-03-12 13:51] VITALS: BP 125/57
[2018-03-12 17:14] LABS: CALCIUM 8.7 mg/dL (8.5-10.1); MAGNESIUM 1.9 mg/dL (1.8-2.4); POTASSIUM 4.2 mmol/L (3.5-5.1)
[2018-03-12 19:39] VITALS: BP 159/71
--- NOTE | 2018-03-13 03:16 | NUR ---
Assumed care of pt at 1915. Pt alert and oriented x4, calm and cooperative. Oxygen on at 2 liters through the night, O2 sat on 1 liter=91%. Denies shortness of air at rest, nausea or pain. Has appeared to be sleeping when checked on hourly rounds. Fall precautions in place.
[2018-03-13 07:50] VITALS: BP 142/71
--- NOTE | 2018-03-13 14:20 | NUR ---
team meeting recommendation 24h/supervision, medication management, no driving until cleared by pcp, and home health (pt,ot,st,nursing,sw,aid). will discuss with family to see if needs will be able to me met at home. will meet o2 stat exercise 24-48 hr prior to dc, if returning home. pt has his own cane.
--- NOTE | 2018-03-13 15:59 | NUR ---
WOUND FOLLOW UP: PT. WAS SEEN TODAY BY DR. SOTO AND MYSELF. PT. WOUNDS ARE DRY AND HEALING WELL. WOUND CARE ORDERS WERE UPDATED AT THIS TIME TO LEAVE ALL SITES OPEN TO AIR. RECOMMENDATIONS: CONTINUE WITH CURRENT PLAN OF CARE. PT. AND STAFF NURSE WERE INSTRUCTED ON WOUND CARE.
--- NOTE | 2018-03-13 17:00 | NUR ---
ASSUMED CARE AT 0700, SHIFT ASSESSMENT DONE, MEDS GIVEN, VSS. REPROTED PAIN TO LEFT LOWER EXTREMITY, PRN PAIN MED GIVEN. WORKED WITH PHYSICAL AND OCCUAPTIONAL THERAPHY, DESATURATED TO 84% AT ONE POINT WITH ACTIVITY. O2 WAS INCREASED TO 3L. DENIES ANY SOB. WILL CONTINUE TO ASSESS AND ASSIST WITH ADLs NEEDED.
[2018-03-13 20:05] VITALS: BP 155/83
[2018-03-14 04:44] LABS: ABSOLUTE NEUTROPHILS 6.6 thou/uL (1.4-8.2); BASOPHILS 0.7 % (0.0-2.0); EOSINOPHILS 0.9 % (0.0-3.0); HEMATOCRIT 28.9 % (42.0-52.0); HEMOGLOBIN 9.7 gm/dL (14.0-18.0); LYMPHOCYTES 8.8 % (24.0-44.0); MCH 31.3 pg (26.0-34.0); MCHC 33.4 g/dL (28.0-37.0); MCV 93.8 fL (80.0-100.0); MONOCYTES 5.2 % (1.0-8.0); PLATELET COUNT 223 thou/uL (150-400); POLYS 84.4 % (36.0-66.0); RBC 3.09 mil/uL (4.50-6.00); RDW 15.5 % (10.5-14.5); WBC 7.9 thou/uL (4.0-11.0)
[2018-03-14 05:23] LABS: CALCIUM 8.7 mg/dL (8.5-10.1); MAGNESIUM 1.8 mg/dL (1.8-2.4); POTASSIUM 3.7 mmol/L (3.5-5.1)
--- NOTE | 2018-03-14 05:42 | NUR ---
CONTACTED PHARMACY REGARDING PROTONIX WHICH CAN'T BE CRUSHED, WILL CHANGE IT TO SUSPENSION.
--- NOTE | 2018-03-14 06:06 | NUR ---
PT CAN BE IMPULSIVE, BED ALARM SET AT THE MIDDLE FOR SAFETY, VOIDING PER URINAL, DARK YELLOW URINE, NO SMELL, KEPT ON OXYGEN, RT BUMPED HIM AVA 4.5 L, SATURATION CHECKED IN THE EAR LOBE DUE TO PERIPHERAL ISSUES, REFUSING SCDS, HOURLY ROUNDING, TOLERATING ORAL INTAKE, CALL LIGHT WITHIN REACHED, MONITORED.
[2018-03-14 07:30] VITALS: BP 122/72
--- NOTE | 2018-03-14 07:40 | NUR ---
ASSUMED PT CARE AT 0700. ASSESSED PT AT 0740. PT IN BED, DOES NOT APPEAR IN DISTRESS. O2 AT 6L NASAL CANNULA SAT 93%. PT BREATHING NORMALLY, LUNGS COURSE UPON EXPIRATION. VITAL SIGNS STABLE. PT ALERT AND ORIENTED X4, DENIES PAIN AT THIS TIME. ASSESSMENT IS CHARTED. WILL CONTIUE TO MONITOR RESPIRATORY STATUS AND PAIN CONTROL AND CONTINUE WITH PLAN OF CARE.
[2018-03-14 08:50] LABS: BE(vivo) 2.5 mmol/L (-2 to +3); HCO3 26.9 mmol/L (22.0-26.0); PCO2 40.7 mmHg (35.0-45.0); pH 7.438 (7.360-7.450); sO2 87.2 % (92.0-98.0)
[2018-03-14 08:51] LABS: PO2 50.8 mmHg (80.0-100.0)
--- NOTE | 2018-03-14 09:05 | NUR ---
BLOOD GASES CALLED TO CASE MANAGER SPECIALIST. PT UP IN CHAIR DRESSED. REPORTS SHORTNESS OF BREATH WITH ACTIVITY BUT OTHERWISE IN NO RESPIRATORY DISTRESS. CASE MANAGER SPECIALIST TO SEE PATIENT IN REGARD TO BLOOD GAS RESULTS.
--- NOTE | 2018-03-14 10:30 | NUR ---
PT DISCHARGED VIA WHEELCHAIR. VITAL SIGNS STABLE. 02 @ 6L PER NC.
--- NOTE | 2018-03-15 14:54 | H ---
[facility] [place] [address] HISTORY AND PHYSICAL Name: MINGO PEACE Room #: 510-P [facility] IN M.R.#: [id number] Admission: 03/08/18 Attend Phys: Wilfredo Goldberg MD Discharge: 03/14/18 Date of : 34 Report #: [id number] THIS REPORT FOR: //name// CC: Wilfredo Iqbal DATE OF SERVICE: 03/08/2018 HISTORY AND PHYSICAL AND POSTADMISSION PHYSICIAN EVALUATION: HISTORY OF PRESENT ILLNESS: The patient is an 82-year-old white male who had a fall in a parking lot. He denied loss of consciousness. He sustained multiple bruises with striking his face, right hand, and elbow. He did not initially come into the hospital, but his son checked on him the next day and brought him in for further evaluation. He has a history of atrial fibrillation and was on Coumadin with an elevated INR of 4.6. Cardiology saw him and felt that the fall was likely due to probable pain medication along with ETOH. He did report one shot of whiskey on the evening of the fall. He does note problems with balance and may have sustained a concussion. He had considerable trauma with a large maxillary bruise. He has had some dizziness. He was noted to have decreased balance, cognitive concerns, decreased functional independence and has been admitted now for acute in-hospital inpatient rehabilitation. PAST MEDICAL HISTORY: Atrial fibrillation, hypertension, hyperlipidemia, coronary artery disease, history of peripheral vascular disease with peripheral arterial disease, CHF, chronic back pain with opioid usage, and history of recurrent falls. MEDICATIONS: Please see the full medication listing. ALLERGIES: No known drug allergies. SOCIAL HISTORY: He was premorbidly living in a house by himself. He used a cane one step in, was driving in the community. His house is one floor. There is a son that is involved. REVIEW OF SYSTEMS: No current complaints of chest pain, shortness of breath, abdominal discomfort. He does have discomfort of the right hand. Notes that he has been several days without a bowel movement. This was relayed to nursing. Does have a prior history of chronic back pain. PHYSICAL EXAMINATION: GENERAL: He is a pleasant 82-year-old white male in no obvious distress. VITAL SIGNS: Temperature 97.5, pulse 73, respirations 17, blood pressure 165/72. NEUROLOGIC: The patient is alert, pleasant. He does follow basic 1 step commands. There is some latency to his responses. He is hard of hearing. His right maxillary area is dressed. He has some periorbital [address] [address] HISTORY AND PHYSICAL Name: MINGO PEACE Room #: 510-P [facility] IN M.R.#: [id number] Admission: 03/08/18 Attend Phys: Wilfredo Goldberg MD Discharge: 03/14/18 Date of : 34 Report #: [id number] ecchymosis. EOMs appeared to be full. No obvious visual field neglect to confrontation. CHEST: Sounded clear to auscultation. CARDIOVASCULAR: Regular rate and rhythm. ABDOMEN: Obese, bowel sounds positive, nontender. GENITOURINARY AND RECTAL: Deferred. NEUROLOGIC: His right hand is dressed as he has had some excoriations, which are dressed over the hand and fingers. He has some difficulty moving that hand with some discomfort as expected. I could not detect any focal proximal weakness of that right upper extremity. Left upper extremity revealed functional range of motion, strength is grade 4-/5. Lower extremities, no focal calf swelling, functional range of motion, strength is grade 4-/5. DTRs are trace to 1. He does need assistance with functional mobility issues. He is min assist to come to stand. He has ambulated a short distance min assist with a walker. ASSESSMENT: 1. Closed head injury with dizziness and fall. He may have some postconcussion symptomatology. 2. Hematoma, right maxillary area involving periorbital area as well. 3. Multiple lacerations, excoriations over the right hand and fingers. 4. History of frequent falls, 3 in the past year. 5. Atrial fibrillation for which he has been anticoagulated. 6. History of limited ETOH usage per report. 7. Hypertension. 8. Hyperlipidemia. 9. Peripheral vascular disease with peripheral arterial disease. 10. History of congestive heart failure. 11. Chronic back pain with opioid usage. PLAN: The patient is admitted for acute in-hospital inpatient rehabilitation. From a postadmission physician evaluation perspective, there are no relevant changes since the preadmission screening. Please see the above review of prior and current medical and functional conditions and comorbidities. Please see the patient's previous and current functional status. As far as risk of complications, the patient has multiple medical comorbidities as noted above. The initial plan of care involves the interdisciplinary acute inpatient rehabilitation program with goal of maximizing the patient's functional independence, so that he can hopefully return back to his prior living situation. Measurable functional goals would be for the patient to become modified independent with transfers, mobility, ADLs, and cognition, so he can return back to the home setting. Prognosis is reasonably good with estimated length of stay, probably at least 7-14 days pending his needs. Potential barriers would include his multiple medical comorbidities and decreased functional status. The patient meets diagnostic criteria for an acute in-hospital inpatient rehabilitation stay. The patient meets the medical necessity criteria. He does [facility] [address] [place] [address] HISTORY AND PHYSICAL Name: KOBIMINGO Room #: 510-P DIS IN M.R.#: [id number] Admission: 03/08/18 Attend Phys: Wilfredo Goldberg MD Discharge: 03/14/18 Date of : 34 Report #: [id number] have the tolerance for therapies and has appropriate discharge goals back to the home setting. <ELECTRONICALLY SIGNED> By: Wilfredo Goldberg MD 03/15/18 1454 [id number] Wilfredo Goldberg MD /nt
--- NOTE | 2018-03-18 14:03 | HC ---
[facility] [place] [address] CONSULTATION Name: MINGO PEACE Room #: 510-P [facility] IN M.R.#: [id number] Admission: 03/08/18 Attend Phys: Wilfredo Goldberg MD Discharge: 03/14/18 Date of : 34 Report #: [id number] THIS REPORT FOR: //name// CC: Wilfredo Goldberg Delmy Iqbal DATE OF SERVICE: 03/10/2018 NEUROBEHAVIORAL STATUS EXAM: ATTENDING PHYSICIAN: Wilfredo Goldberg MD. AUTOMOBILE UPHOLSTERER: Cornelio Aparicio, PhD. CLINICAL PRESENTATION: The patient is an 82-year-old male admitted to the rehabilitation unit at [facility] for comprehensive inpatient rehabilitation program to improve functional mobility, activities of daily living and self-care and mental status secondary to deficits from a closed head injury with dizziness and fall. The patient is reported to have been in a parking lot walking toward his car when he fell. He sustained multiple bruises striking his face, hand and elbow. He did not initially come to the hospital. His son checked on him the next day and then brought him in for further evaluation. The fall is reported to have been due to pain medication and alcohol use. The patient reported having drunk one shot of whiskey the evening of the fall. Regular and excessive use of alcohol on a daily basis is sreproted. Additionally, he has had a previous fall several weeks ago. His diagnoses on admission to rehab includes a closed head injury with postconcussive symptomatology, hematoma, right maxillary area involving the periorbital area, multiple lacerations, excoriations over the right hand and fingers, history of frequent falls with 3 in the past year, atrial fibrillation, history of limited alcohol use, hypertension, hyperlipidemia, peripheral vascular disease, history of congestive heart failure and chronic back pain with opioid use. A complete neuropsychological consultation was requested to provide assistance in the assessment of cognitive and emotional status. A complete description of his medical condition and history can be found in his medical records. Prior to this most recent medical event, the patient was living independently in his own home. He reports driving and being independent with instrumental activities of daily living. His is reported to have Alzheimer's disease and in long-term care. The patient has 2 children. 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 He is a college graduate. The patient reports 3-4 shots of alcohol daily. [facility] [address] [place] [address] CONSULTATION Name: MINGO PEACE Room #: 510-P [facility] IN M.R.#: [id number] Admission: 03/08/18 Attend Phys: Wilfredo Goldberg MD Discharge: 03/14/18 Date of : 34 Report #: [id number] TECHNIQUES UTILIZED: Clinical interview, review of medical records, staff consultation and behavioral observation, mini mental status exam 2 standard version, verbal fluency assessment (letter and category), the patient has his right hand wrapped and so was unable to utilize his right upper extremity for assessing drawing or constructive tasks. EXAMINATION FINDINGS: The patient was alert and cooperative with the assessment. He accurately described the reason for his hospitalization. There is no evidence of aphasia. His thoughts are logical and goal oriented. There is no evidence of thought disorder. He does not report auditory or visual hallucinations. His speech appears effortful. His performance on the MMSE 2 standard version declined to a raw score 25 of 30, which is at the 16th percentile and in the low average range. Writing and drawing were not assessed because of his right hand being taped. He was 3/5 for serial sevens, 2/2 for naming, 1/1 for repetition, 3/3 for comprehension. He could read and follow single command. Letter fluency was at the 10th percentile and in the low average range with a raw score of 15 and a T score of 37. Category fluency was extremely low with a raw score of 12 and a T score of 24, which is less than 1%. Overall, total fluency is extremely low with a raw score of 27 and a T score 21, which is less than 1%. The patient is presenting with deficits in executive functioning along with sustained concentration and divided attention. These deficits are likely aggravated by the use of pain medication and use of alcohol. DIAGNOSTIC IMPRESSION: Neurocognitive disorder, unspecified, with decreased insight -- extent to be determined, likely in the moderate range. Alcohol use disorder. RECOMMENDATIONS: The patient is presenting with deficits in cognition that are likely multifactoral. Excessive alcohol use that is likely contributing to variability in neurocognitive functioning. He will require assistance in the management of medication. Driving should be discontinued upon further assessment to ensure his ability to safely drive. Alcohol use, variability in judgment and driving are likely to further compromise his safety. Decreased insight will interfere with safety and increase his degree of risk. An outpatient neuropsych assessment approximately 4-6 weeks would be of benefit to clarify the severity of cognitive deficits. At this time, he will need assistance in the management of medication, finances [facility] [address] [place] [address] CONSULTATION Name: MINGO PEACE Room #: 510-P DIS IN M.R.#: [id number] Admission: 03/08/18 Attend Phys: Wilfreod Goldberg MD Discharge: 03/14/18 Date of : 34 Report #: [id number] and nutrition and as indicated driving should be discontinued. Continued speech therapy to assist with compensation strategies. His family should be contacted and informed of concern regarding his safety. Thank you very much for allowing me to provide the consultation on this patient. <ELECTRONICALLY SIGNED> By: Cornelio Aparicio, PhD 03/18/18 1403 1607 52 Cornelio pAaricio, PhD /nt
--- NOTE | 2018-03-22 11:44 | PLAN ---
[facility] [place] [address] REHAB UNIT PLAN OF CARE Name: MINGO PEACE Room #: 510-P DIS IN M.R.#: [id number] Admission: 03/08/18 Attend Phys: Wilfredo Goldberg MD Discharge: 03/14/18 Date of : 34 Report #: [id number] THIS REPORT FOR: //name// CC: Wilfredo Zaragozaie Rasheed DATE OF SERVICE: 03/10/2018 PROGRESS NOTE/OVERALL PLAN OF CARE SUBJECTIVE: The patient was seen back earlier. Last recorded temperature is 36.5, pulse is 68, respirations 22, and blood pressure is 136/64. He was sleepy, no new complaints. Nursing is working with him as he has had some constipation. He has been involved with therapies with transfers, min assist; gait 150 feet contact guard with a front-wheeled walker. In occupational therapy, lower body with assist. In speech therapy, mild comprehensive deficits. Moderate memory deficits with [id number] cognitive deficits. ASSESSMENT: An 82-year-old white male with the following problem list: 1. Closed head injury with dizziness and fall. He may have some post-concussion symptomatology. 2. Hematoma, right maxillary area involving the periorbital area as well. 3. Multiple lacerations, excoriations of the right hand and fingers. He has traumatic wounds to the face and right third through fifth fingers and left fifth finger. Wound care is involved. 4. History of frequent falls, 3 in the past year. 5. Atrial fibrillation, for which he has been anticoagulated. 6. History of limited EtOH usage per report. 7. Hypertension. 8. Hyperlipidemia. 9. Peripheral vascular disease with peripheral arterial disease. 10. History of congestive heart failure. 11. Chronic back pain with opioid usage. PLAN: The overall plan of care is based on the preadmission screen, post-admission physician evaluation, and information garnered from therapy assessments. 1. Estimated length of stay is probably 7-14 days pending progress. 2. Medical prognosis is reasonably good. 3. Anticipated interventions includes the interdisciplinary acute inpatient rehabilitation program with the goal of maximizing the patient's functional independence, so that he can hopefully return back to his prior living situation. 4. Anticipated functional outcomes would be for the patient to become modified independent with transfers, mobility, ADLs, and improved cognition, so that he [address] [address] REHAB UNIT PLAN OF CARE Name: MINGO PEACE Room #: 510-P [facility] IN M.R.#: [id number] Admission: 03/08/18 Attend Phys: Wilfredo Goldberg MD Discharge: 03/14/18 Date of : 34 Report #: [id number] can return back to the home setting. 5. Discharge destination would be back to the home setting, where he had been living by himself with his son involved. He may have additional assistance initially. We will need to see how he further improves. 6. Expected therapy by discipline includes PT, OT, speech 1 hour per day each five days a week throughout the duration of the acute inpatient rehabilitation stay. <ELECTRONICALLY SIGNED> By: Wilfredo Goldberg MD 03/22/18 1144 [id number] Wilfredo Goldberg MD /[facility]
== END 2018-03-14 10:30 | DRG 88 ==
LOC: 3W 03-14 10:07
PROVIDERS: Nurse Practitioner; ADMIT Physical Medicine & Rehabilitation
DX: S06.0X0A Concussion without loss of consciousness, initial encounter (principal); J96.01 Acute respiratory failure with hypoxia; S05.11XA Contusion of eyeball and orbital tissues, right eye, initial encounter; R29.6 Repeated falls; I48.91 Unspecified atrial fibrillation; E78.5 Hyperlipidemia, unspecified; I73.9 Peripheral vascular disease, unspecified; I11.0 Hypertensive heart disease with heart failure; I50.9 Heart failure, unspecified; G89.29 Other chronic pain; M54.9 Dorsalgia, unspecified; E87.6 Hypokalemia; J44.9 Chronic obstructive pulmonary disease, unspecified; I25.10 Atherosclerotic heart disease of native coronary artery without angina pectoris; S61.212A Laceration without foreign body of right middle finger without damage to nail, initial encounter; S61.216A Laceration without foreign body of right little finger without damage to nail, initial encounter; N40.0 Benign prostatic hyperplasia without lower urinary tract symptoms; H91.90 Unspecified hearing loss, unspecified ear; K21.9 Gastro-esophageal reflux disease without esophagitis; K59.00 Constipation, unspecified; R32 Unspecified urinary incontinence; G47.00 Insomnia, unspecified; R26.9 Unspecified abnormalities of gait and mobility; F10.10 Alcohol abuse, uncomplicated; F11.10 Opioid abuse, uncomplicated; S61.214A Laceration without foreign body of right ring finger without damage to nail, initial encounter; S61.217A Laceration without foreign body of left little finger without damage to nail, initial encounter; W18.39XA Other fall on same level, initial encounter; Y93.89 Activity, other specified; Y92.481 Parking lot as the place of occurrence of the external cause; Y99.8 Other external cause status; Z86.718 Personal history of other venous thrombosis and embolism; Z79.01 Long term (current) use of anticoagulants; Z79.891 Long term (current) use of opiate analgesic; Z79.899 Other long term (current) drug therapy
CPT/HCPCS: 10112

== ENCOUNTER 2018-03-14 10:30 | Inpatient (IN) | payer OTHER, BC ==
[~2018-03-14] VITALS: Ht 182.9 cm; Wt 89.3 kg
--- NOTE | ~2018-03-14 | HC ---
[facility] [place] [address] CONSULTATION Name: MINGO PEACE Room #: 350-P ADM IN M.R.#: [id number] Admission: 03/14/18 Attend Phys: Mateo Molina MD Discharge: Date of : 34 Report #: [id number] THIS REPORT FOR: //name// CC: Mateo Iqbal DATE OF SERVICE: 03/14/2018 REFERRAL PHYSICIAN: Dr. Molina. REASON FOR REFERRAL: Infiltrates. HISTORY OF PRESENT ILLNESS: The patient is an 82-year-old white male who is admitted following a fall. The patient was initially admitted to the Acute Rehab Unit. Today, he has been admitted to the Acute Care for increasing dyspnea, infiltrates. A pulmonary consultation is requested. The patient has a history of recurrent falls. On 03/06/2018, he sustained another fall. He has bruises on his right face, forehead, right arm and elbow. He has been on Coumadin. Chest x-ray performed earlier shows increasing left-sided infiltrates. This appears to be new from his early chest x-ray performed when he presented on 03/06/2018. Currently, he denies any productive cough. He is dyspneic. He is a fair historian. Denies any chest pain or hemoptysis. PAST MEDICAL HISTORY: Notable for COPD, alcohol abuse, hypertension, peripheral artery disease including the carotid arteries, lower extremities, atrial fibrillation, past history of tobacco use. He has degenerative disease involving the lumbar spine. ALLERGIES: None. HOME MEDICATIONS: Include amiodarone, Cardizem, Lipitor, Plavix, Prevacid, docusate, Spiriva, Symbicort, Coreg. FAMILY HISTORY: Noncontributory. SOCIAL HISTORY: The patient has smoked cigarettes in the past, but quit some time ago. Currently drinks alcohol. REVIEW OF SYSTEMS: As mentioned above. PHYSICAL EXAMINATION: GENERAL: He is somewhat awake, appears weak, in no distress. VITAL SIGNS: Temperature 98 degrees Fahrenheit, pulse is 67, respiratory rate [facility] [address] [place] [address] CONSULTATION Name: MINGO PEACE Room #: 350-[facility] IN M.R.#: [id number] Admission: 03/14/18 Attend Phys: Mateo Molina MD Discharge: Date of : 34 Report #: [id number] is 18, blood pressure 119/68 mmHg, saturation is 96%. HEENT: Normocephalic, atraumatic. NECK: Supple, without any lymphadenopathy or thyromegaly. CHEST: Breath sounds are fair with rales in the left lung field. No wheezes. Right lung field appears to be fairly clear. CARDIOVASCULAR: Normal S1, S2. No murmurs or gallop. There is no JVD. There is no carotid bruit. Pulses are 2+/4+ bilaterally. ABDOMEN: Soft, nontender, no organomegaly or masses felt. GENITOURINARY: Deferred. RECTAL: Deferred. EXTREMITIES: There is no edema, cyanosis or clubbing. LABORATORY DATA: Portable chest x-ray performed on 03/13/2018 shows increasing left-sided infiltrates, this is new since admission a few days ago. CT chest shows bullous disease bilaterally along with interstitial infiltrates seen in the left lung field along with volume loss. Atelectasis noted in the left lower lobe. Venous ultrasound shows no evidence of DVT. Procalcitonin is 0.1. IMPRESSION: 1. Increase in the left side infiltrates in this 82-year-old white male. He recently fell. Etiology is probably related to pulmonary contusion due to recent fall. Pneumonia is felt to be less likely. 2. Chronic obstructive pulmonary disease, severity undefined. 3. Acute hypoxic respiratory failure. 4. History of falls off anticoagulation. 5. Recent fall sustaining bruises involving the right face, right upper extremity. 6. Peripheral artery disease. 7. Atrial fibrillation. 8. Remote history of deep vein thrombosis, off anticoagulation due to falls. RECOMMENDATION: Suspect infiltrates on the left lung is likely related to pulmonary contusion. I think it is reasonable to continue antibiotics and observe closely. If the patient remains afebrile, could consider discontinuing antibiotics. Agree with bronchodilators, corticosteroids. Wean O2 for saturation of 90%. DVT and GI prophylaxis recommended. Thank you for the consultation. <ELECTRONICALLY SIGNED> By: Arash Wylie MD 03/14/181914 05 09 Arash Wylie MD /nt
[2018-03-14 10:47] VITALS: BP 125/73
[2018-03-14 16:14] VITALS: BP 119/68
[2018-03-14 19:47] VITALS: BP 119/48
[2018-03-15] VITALS (27 sets, daily range): BP systolic 104–142; BP diastolic 49–87
[2018-03-15 01:30] LABS: BE(vivo) 2.3 mmol/L (-2 to +3); HCO3 26.6 mmol/L (22.0-26.0); PCO2 40.1 mmHg (35.0-45.0); pH 7.439 (7.360-7.450); sO2 88.3 % (92.0-98.0)
[2018-03-15 01:31] LABS: PO2 52.4 mmHg (80.0-100.0)
[2018-03-15 06:00] LABS: ABSOLUTE NEUTROPHILS 5.7 thou/uL (1.4-8.2); BASOPHILS 0.3 % (0.0-2.0); HEMOGLOBIN 8.8 gm/dL (14.0-18.0); LYMPHOCYTES 4.9 % (24.0-44.0); MCH 31.7 pg (26.0-34.0); MCHC 33.7 g/dL (28.0-37.0); MCV 94.1 fL (80.0-100.0); MONOCYTES 2.5 % (1.0-8.0); PLATELET COUNT 226 thou/uL (150-400); POLYS 92.3 % (36.0-66.0); RBC 2.76 mil/uL (4.50-6.00); RDW 15.4 % (10.5-14.5); WBC 6.2 thou/uL (4.0-11.0)
[2018-03-15 06:54] LABS: CALCIUM 8.3 mg/dL (8.5-10.1); MAGNESIUM 1.9 mg/dL (1.8-2.4); POTASSIUM 3.8 mmol/L (3.5-5.1)
[2018-03-16] VITALS (25 sets, daily range): BP systolic 107–155; BP diastolic 45–86
[2018-03-16 05:37] LABS: BE(vivo) 5.1 mmol/L (-2 to +3); HCO3 28.6 mmol/L (22.0-26.0); PO2 57.9 mmHg (80.0-100.0); pH 7.495 (7.360-7.450); sO2 92.3 % (92.0-98.0)
[2018-03-16 06:28] LABS: ABSOLUTE NEUTROPHILS 6.2 thou/uL (1.4-8.2); BASOPHILS 0.2 % (0.0-2.0); HEMATOCRIT 26.7 % (42.0-52.0); HEMOGLOBIN 9.2 gm/dL (14.0-18.0); LYMPHOCYTES 5.9 % (24.0-44.0); MCH 32.3 pg (26.0-34.0); MCHC 34.6 g/dL (28.0-37.0); MCV 93.4 fL (80.0-100.0); MONOCYTES 2.7 % (1.0-8.0); PLATELET COUNT 244 thou/uL (150-400); POLYS 91.2 % (36.0-66.0); RBC 2.86 mil/uL (4.50-6.00); RDW 15.3 % (10.5-14.5); WBC 6.8 thou/uL (4.0-11.0)
[2018-03-16 06:46] LABS: CALCIUM 8.2 mg/dL (8.5-10.1); CREATININE 1.1 mg/dL (0.7-1.3)
[2018-03-17] VITALS (20 sets, daily range): BP systolic 116–147; BP diastolic 35–90
[2018-03-17 05:02] LABS: ABSOLUTE NEUTROPHILS 6.8 thou/uL (1.4-8.2); BASOPHILS 0.8 % (0.0-2.0); HEMATOCRIT 27.6 % (42.0-52.0); HEMOGLOBIN 9.4 gm/dL (14.0-18.0); LYMPHOCYTES 4.7 % (24.0-44.0); MCHC 33.9 g/dL (28.0-37.0); MCV 94.4 fL (80.0-100.0); MONOCYTES 3.8 % (1.0-8.0); PLATELET COUNT 257 thou/uL (150-400); POLYS 90.7 % (36.0-66.0); RBC 2.93 mil/uL (4.50-6.00); RDW 15.3 % (10.5-14.5); WBC 7.5 thou/uL (4.0-11.0)
[2018-03-17 05:11] LABS: CALCIUM 8.1 mg/dL (8.5-10.1); CREATININE 1.2 mg/dL (0.7-1.3); POTASSIUM 3.5 mmol/L (3.5-5.1)
[2018-03-18 05:00] VITALS: BP 142/72
[2018-03-18 06:26] LABS: HEMATOCRIT 30.3 % (42.0-52.0); HEMOGLOBIN 10.2 gm/dL (14.0-18.0); MCH 31.9 pg (26.0-34.0); MCHC 33.7 g/dL (28.0-37.0); MCV 94.9 fL (80.0-100.0); RBC 3.2 mil/uL (4.50-6.00); RDW 15.5 % (10.5-14.5); WBC 8.8 thou/uL (4.0-11.0)
[2018-03-18 06:38] LABS: CALCIUM 8.1 mg/dL (8.5-10.1); CREATININE 1.1 mg/dL (0.7-1.3); POTASSIUM 4.2 mmol/L (3.5-5.1)
[2018-03-18 07:24] VITALS: BP 151/70
[2018-03-18 11:08] VITALS: BP 132/63
[2018-03-18 15:32] VITALS: BP 131/60
[2018-03-18 20:04] VITALS: BP 145/66
[2018-03-19 04:37] VITALS: BP 150/66
[2018-03-19 08:03] VITALS: BP 152/66
[2018-03-19 09:04] LABS: HEMATOCRIT 33.2 % (42.0-52.0); MCH 31.3 pg (26.0-34.0); MCHC 33.1 g/dL (28.0-37.0); MCV 94.6 fL (80.0-100.0); RBC 3.51 mil/uL (4.50-6.00); RDW 15.5 % (10.5-14.5); WBC 10.7 thou/uL (4.0-11.0)
[2018-03-19 09:15] LABS: CALCIUM 8.1 mg/dL (8.5-10.1); CREATININE 1.1 mg/dL (0.7-1.3); MAGNESIUM 2.3 mg/dL (1.8-2.4); POTASSIUM 3.8 mmol/L (3.5-5.1)
[2018-03-19 11:27] VITALS: BP 145/65
[2018-03-19 13:04] LABS: % SATURATION 20 % (20-39); IRON 38 ug/dL (65-175); TIBC 191 ug/dL (250-450)
[2018-03-19 14:07] LABS: FERRITIN 193 ng/mL (26-388)
[2018-03-19 16:34] VITALS: BP 152/66
[2018-03-19 19:33] VITALS: BP 143/72
[2018-03-19 22:06] LABS: GLYCOHEMOGLOBIN (HGB A1C) 4.8 % (4.8-5.6)
[2018-03-19 23:43] VITALS: BP 148/73
[2018-03-20 03:44] VITALS: BP 159/69
[2018-03-20 07:35] VITALS: BP 159/72
[2018-03-20 11:48] VITALS: BP 145/73
[2018-03-20 17:01] VITALS: BP 145/78
[2018-03-20 20:50] VITALS: BP 148/64
[2018-03-21 04:45] VITALS: BP 130/60
[2018-03-21 07:47] VITALS: BP 124/52
[2018-03-21 09:25] LABS: CALCIUM 7.9 mg/dL (8.5-10.1); CREATININE 1.1 mg/dL (0.7-1.3)
[2018-03-21 10:17] LABS: BE(vivo) 3.3 mmol/L (-2 to +3); HCO3 27.9 mmol/L (22.0-26.0); PCO2 42.5 mmHg (35.0-45.0); PO2 66.6 mmHg (80.0-100.0); pH 7.435 (7.360-7.450); sO2 93.8 % (92.0-98.0)
[2018-03-21 11:18] VITALS: BP 122/52
[2018-03-21 15:34] VITALS: BP 134/60
[2018-03-21 20:10] VITALS: BP 128/55
[2018-03-22 04:15] VITALS: BP 118/60
[2018-03-22 07:49] VITALS: BP 145/52
[2018-03-22 11:52] VITALS: BP 128/54
[2018-03-22] MEDS ORDERED: OXYCONTIN15 MG PO (12:29)
[2018-03-22] MEDS ORDERED: BYSTOLIC 5 MG5 M1 PO (12:29)
[2018-03-22] MEDS ORDERED: DEMADEX20 MG PO (12:29)
[2018-03-22] MEDS ORDERED: ASPIR 8181 MG PO (12:29)
[2018-03-22] MEDS ORDERED: PERCOCET PO (12:29)
[2018-03-22] MEDS ORDERED: PREDNISONE 20 M20 M1 PO (12:29)
[2018-03-22] MEDS ORDERED: ZOSYN 3.373.375 GM/1 IV (12:53)
[2018-03-22 16:15] VITALS: BP 135/57
[2018-03-22 20:37] VITALS: BP 143/62
[2018-03-23 04:20] VITALS: BP 130/56
[2018-03-23 05:56] LABS: CALCIUM 7.3 mg/dL (8.5-10.1)
[2018-03-23 07:38] VITALS: BP 134/45
[2018-03-23 11:19] VITALS: BP 124/54
== END 2018-03-23 13:44 | DRG 177 ==
LOC: 3W 10:30 → ICU 03-15 01:50 → 3W 03-17 17:29
PROVIDERS: Hospitalist; Internal Medicine; Internal Medicine Cardiovascular Disease; Internal Medicine Pulmonary Disease; Nurse Practitioner; Nurse Practitioner Adult Health; Pediatrics
DX: J69.0 Pneumonitis due to inhalation of food and vomit (principal); J96.01 Acute respiratory failure with hypoxia; I50.33 Acute on chronic diastolic (congestive) heart failure; E43 Unspecified severe protein-calorie malnutrition; M84.48XA Pathological fracture, other site, initial encounter for fracture; I48.92 Unspecified atrial flutter; J44.9 Chronic obstructive pulmonary disease, unspecified; I73.9 Peripheral vascular disease, unspecified; M51.36 Other intervertebral disc degeneration, lumbar region; E78.5 Hyperlipidemia, unspecified; G89.29 Other chronic pain; M54.9 Dorsalgia, unspecified; N40.0 Benign prostatic hyperplasia without lower urinary tract symptoms; E78.00 Pure hypercholesterolemia, unspecified; I11.0 Hypertensive heart disease with heart failure; R33.9 Retention of urine, unspecified; R29.6 Repeated falls; S09.90XA Unspecified injury of head, initial encounter; E87.6 Hypokalemia; E87.70 Fluid overload, unspecified; Z60.2 Problems related to living alone; D64.9 Anemia, unspecified; R00.1 Bradycardia, unspecified; I25.10 Atherosclerotic heart disease of native coronary artery without angina pectoris; S69.91XA Unspecified injury of right wrist, hand and finger(s), initial encounter; W18.39XA Other fall on same level, initial encounter; Y93.89 Activity, other specified; Y92.89 Other specified places as the place of occurrence of the external cause; Y99.8 Other external cause status; Z68.26 Body mass index [BMI] 26.0-26.9, adult; Z87.891 Personal history of nicotine dependence; Z86.718 Personal history of other venous thrombosis and embolism; Z79.01 Long term (current) use of anticoagulants; Z79.82 Long term (current) use of aspirin; Z79.899 Other long term (current) drug therapy
CPT/HCPCS: 10078; 10779; 10879

== ENCOUNTER 2018-04-09 16:29 | Inpatient (IN) | payer OTHER ==
[~2018-04-09] VITALS: Ht 180.3 cm; Wt 93.6 kg
[2018-04-09] VITALS (19 sets, daily range): BP systolic 74–154; BP diastolic 27–71
[~2018-04-09 16:29] MED LIST changes: +ASPIR 8181 MG PO; +BYSTOLIC 5 MG5 M1 PO; +OXYCONTIN15 MG PO; +PERCOCET PO; +PREDNISONE 20 M20 M1 PO; +ZOSYN 3.373.375 GM/1 IV
--- NOTE | 2018-04-09 16:41 | NUR ---
15MG ETOMIDATE GIVEN AT 1641 ET TUBE PLACED AT 1644, 7.5, 20 AT TEETH. OG 18FR, 70 AT TIP OF NOSE. 50 FENTANYL GIVEN AT 1646
[2018-04-09 16:57] LABS: HEMATOCRIT 25.1 % (42.0-52.0); HEMOGLOBIN 8.3 gm/dL (14.0-18.0); MCH 32.1 pg (26.0-34.0); MCHC 33.1 g/dL (28.0-37.0); MCV 97.2 fL (80.0-100.0); PLATELET COUNT 142 thou/uL (150-400); RBC 2.58 mil/uL (4.50-6.00); RDW 19.5 % (10.5-14.5)
[2018-04-09 17:00] LABS: CALCIUM 8.4 mg/dL (8.5-10.1); POTASSIUM 4.5 mmol/L (3.5-5.1)
[2018-04-09 17:07] LABS: BE(vivo) 6.8 mmol/L (-2 to +3); HCO3 33.4 mmol/L (22.0-26.0); PCO2 63.2 mmHg (35.0-45.0); PO2 261.2 mmHg (80.0-100.0); pH 7.341 (7.360-7.450); sO2 99.5 % (92.0-98.0)
[2018-04-09 17:38] LABS: ABSOLUTE NEUTROPHILS 3.4 thou/uL (1.4-8.2); ANISOCYTOSIS 1+; METAMYELOCYTES 2 %; NUCLEATED RBCS 1 /100WBC
[2018-04-09 17:39] LABS: POLYCHROMASIA OCCASIONAL
--- NOTE | 2018-04-09 17:51 | NUR ---
CONSULTED TO PLACE A CENTRAL LINE FOR A PATIENT POST RR ARREST. CONSENT OBTAINED FROM THE PATIENTS DPOA AFTER BENIFITS AND RISKS OF LINE DISCUSSED AND QUESTIONS WERE ANSWERED. THE RIGHT JUGULAR WAS WIDLEY PATENT. A #6F TRIPLE LUMEN POWER INJECTABLE CENTRAL LINE WAS PLACED AFTER A BEDSIDE TIMEOUT WAS COMPLETE. LINE 25CM ADVANCED TO 19CM WITH BRISK BLOOD RETURN AND FLUSHED EASILY. LINE ADVANCED WITHOUT DIFFICULTY. A STAT CHEST XRAY WAS ORDERED FOR CONFIRMATION.
[2018-04-09 18:44] LABS: URINE BILIRUBIN NEGATIVE (Negative); URINE BLOOD 3+ (Negative); URINE CLARITY CLEAR; URINE COLOR YELLOW; URINE GLUCOSE-RANDOM* NEGATIVE (Negative); URINE KETONES NEGATIVE (Negative); URINE LEUKOCYTES-REFLEX NEGATIVE (Negative); URINE NITRITE-REFLEX NEGATIVE (Negative); URINE PROTEIN (DIPSTICK) 1+ (Negative)
[2018-04-09 18:53] LABS: SQUAMOUS None Seen /LPF (0-3); URINE WBC-REFLEX None Seen /HPF (0-5)
[2018-04-09 18:54] LABS: BACTERIA-REFLEX 1-9 Few /HPF (None Seen); CRYSTALS None Seen /LPF (None Seen); HYALINE CASTS 0-3 Few /LPF (None Seen); URINE RBC 0-2 Rare /HPF (0-2)
--- NOTE | 2018-04-09 19:18 | NUR ---
[id number]
[2018-04-09 22:57] LABS: HEMATOCRIT 27.1 % (42.0-52.0); HEMOGLOBIN 8.9 gm/dL (14.0-18.0); MCH 31.9 pg (26.0-34.0)
[2018-04-09 22:59] LABS: MCHC 32.8 g/dL (28.0-37.0); MCV 97.3 fL (80.0-100.0); PLATELET COUNT 185 thou/uL (150-400); RBC 2.79 mil/uL (4.50-6.00)
[2018-04-09 23:00] LABS: WBC 1.6 thou/uL (4.0-11.0)
[2018-04-09 23:11] LABS: ALBUMIN 1.7 g/dL (3.4-5.0); APTT 29.6 Seconds (24.5-32.8); CALCIUM 7.1 mg/dL (8.5-10.1); CREATININE 1.7 mg/dL (0.7-1.3); FIBRINOGEN 447.5 mg/dL (210-360); INR 1.1; POTASSIUM 3.9 mmol/L (3.5-5.1); TOTAL BILIRUBIN 1.6 mg/dL (<0.1-1.0); TOTAL PROTEIN 5.1 g/dL (6.4-8.2)
[2018-04-09 23:27] LABS: ABSOLUTE NEUTROPHILS 1.1 thou/uL (1.4-8.2); METAMYELOCYTES 2 %
[2018-04-09 23:29] LABS: ANISOCYTOSIS 1+
[2018-04-09 23:30] LABS: LARGE PLATELETS RARE; PLATELET ESTIMATE NORMAL; POLYCHROMASIA 1+
[2018-04-10] VITALS (121 sets, daily range): BP systolic 58–140; BP diastolic 26–100
--- NOTE | 2018-04-10 03:26 | NUR ---
GCS 6. DOES NOT OPEN EYES. NONVERBAL D/T INTUBATION. WITHDRAWS FROM PAIN. LETHARGIC. PRN VERSED FOR SEDATION. DOES NOT FC. SMALL MOVEMENTS OF BUE AND BLE NOTED. GENERLIZED WEAKNESS. SINUS RHYTHM ON MONITOR. LEVOPHED AND DOPAMINE GTT INFUSING AT THIS TIME. O2 SAT > 92% ON FOLLOWING VENT SETTINGS: RATE 16, TV 500, PEEP 5, FIO2 70%. PT HAS MODERATE VOLUME SHARP, BLOOD-TINGED SPUTUM. SUCTION PRN.
[2018-04-10 04:25] LABS: HEMATOCRIT 26.2 % (42.0-52.0); HEMOGLOBIN 8.4 gm/dL (14.0-18.0); MCH 31.3 pg (26.0-34.0); MCHC 32.2 g/dL (28.0-37.0); MCV 97.2 fL (80.0-100.0); PLATELET COUNT 188 thou/uL (150-400); WBC 2.4 thou/uL (4.0-11.0)
[2018-04-10 04:36] LABS: CREATININE 1.7 mg/dL (0.7-1.3); POTASSIUM 3.9 mmol/L (3.5-5.1)
[2018-04-10 05:23] LABS: ABSOLUTE NEUTROPHILS 1.9 thou/uL (1.4-8.2); METAMYELOCYTES 1 %; NUCLEATED RBCS 2 /100WBC
[2018-04-10 05:24] LABS: PLATELET ESTIMATE NORMAL; POLYCHROMASIA 1+
[2018-04-10 08:38] LABS: CALCIUM 6.5 mg/dL (8.5-10.1); CREATININE 1.8 mg/dL (0.7-1.3); POTASSIUM 3.9 mmol/L (3.5-5.1)
--- NOTE | 2018-04-10 10:22 | H ---
[facility] [place] [address] HISTORY AND PHYSICAL Name: MINGO PEACE Room #: 239-P ADM IN M.R.#: [id number] Admission: 04/09/18 Attend Phys: Wilfredo Schmitz MD Discharge: Date of : 34 Report #: [id number] THIS REPORT FOR: //name// CC: Jose Luis Zaragozaie Rasheed DATE OF SERVICE: 04/09/2018 CHIEF COMPLAINT: Respiratory failure. HISTORY OF PRESENT ILLNESS: The patient is an 82-year-old gentleman with multiple medical problems who was sent to the ER with respiratory failure. He had a long hospital stay in March of last year with several falls and weakness at home. He developed progressive hypoxia and bilateral pulmonary infiltrates. He was attempted on inpatient rehab, but had to be readmitted to acute care due to significant hypoxia. He was requiring significant high flow oxygen. Follow up x-rays revealed bilateral infiltrates and there was possible discussion of amiodarone pulmonary toxicity versus pulmonary contusion from his falls or bacterial pneumonia. He was admitted to the LTAC facility on 03/23/2018; however, today they noted he was hypotensive and more confused beyond baseline with acute change in mental status. He had an oral airway placed by EMS and subsequently intubated in the ER for airway protection. He has been admitted to ICU with sepsis. PAST MEDICAL HISTORY: COPD, aortic stenosis, systolic heart failure with ejection fraction of 40%, history of atrial fibrillation. He had previously been on anticoagulation, which was discontinued due to repeated falls, peripheral vascular disease, chronic back pain, previous compression fracture of the thoracic spine. PAST SURGICAL HISTORY: Unknown. FAMILY HISTORY: Unknown. ALLERGIES: None. MEDICATIONS: Lipitor, Coreg, Plavix, B12, Cardizem, MS Contin, Protonix, Zosyn, prednisone, Demadex. SOCIAL HISTORY: He was living alone. There is reported use of alcohol in the past. REVIEW OF SYSTEMS: He is unable to give review. PHYSICAL EXAMINATION: [facility] [address] [place] [address] HISTORY AND PHYSICAL Name: MINGO PEACE Room #: 239-P [facility] IN M.R.#: [id number] Admission: 04/09/18 Attend Phys: Wilfredo Schmitz MD Discharge: Date of : 34 Report #: [id number] VITAL SIGNS: Pulse 96, respirations 20, blood pressure 105/42, O2 sat 100% on the ventilator. GENERAL: He looks chronically ill, intubated. NG tube in place. HEAD AND NECK: Unremarkable. LUNGS: Clear anteriorly. HEART: Regular. ABDOMEN: Soft, hypoactive bowel sounds. EXTREMITIES: No cyanosis, clubbing or edema. NEUROLOGIC: He is sedated, cannot follow neuro exam. LABORATORY AND X-RAY DATA: Reviewed electronically. I reviewed his hospital records from [facility]. I reviewed Dr. Wylie's assessment. ASSESSMENT: 1. Sepsis syndrome. 2. Acute hypoxic respiratory failure. 3. Chronic obstructive pulmonary disease. 4. Atrial fibrillation. 5. Bilateral pulmonary infiltrates. 6. Systolic heart failure, ejection fraction 40%. 7. Aortic stenosis. 8. Acute kidney injury. 9. Anemia of chronic disease. PLAN: He is admitted to ICU with full care. Antibiotics have been ordered. Lovenox for DVT prophylaxis. Renal dysfunction may be a prerenal state. Sepsis syndrome could be on the basis of pneumonia versus line infection and cultures have been obtained. I will ask Dr. Darwin Caceres to see him in consultation. <ELECTRONICALLY SIGNED> By: Wilfredo Schmitz MD 04/10/18 1022 18 56 Wilfredo Schmitz MD /nt
[2018-04-10 12:15] LABS: BE(vivo) -3.3 mmol/L (-2 to +3); HCO3 22.1 mmol/L (22.0-26.0); PCO2 41.4 mmHg (35.0-45.0); PO2 90.9 mmHg (80.0-100.0); pH 7.346 (7.360-7.450); sO2 96.6 % (92.0-98.0)
--- NOTE | 2018-04-10 16:02 | NUR ---
ASSUMED CARE OF PT AT 0700. PT ON VENT. LEVOPHED AND VASOPRESSIN GTT MAXED. BP REMAINS LOW. PHONED DR JIMENEZ, ORDER OBTAINED TO GIVE 2L NS BOLUS AND EPI GTT. DR PARISI ROUNDED AND D/C'D EPI GTT AND ADDED AMPARO GTT TO MAINTAIN MAP >65. HAYES CATH EXCHANGED FOR ONE WITH UROMETER. PT HAS MARGINAL UOP. PROPOFOL ADDED FOR SEDATION. PT DID BECOME AGITATED AND TRIED TO PULL AT TUBES. ORDER OBTAINED FOR BLANCO SOFT WRIST RESTRAINTS. PT ABLE TO FOLLOW SOME SIMPLE COMMANDS WHEN ON SEDATION VACATION. FAMILY UPDATED ON POC BY DR PARISI VIA TELEPHONE.
--- NOTE | 2018-04-10 18:39 | HC ---
[facility] [place] [address] CONSULTATION Name: MINGO PEACE Room #: 239-P ADM IN M.R.#: [id number] Admission: 04/09/18 Attend Phys: Wilfredo Schmitz MD Discharge: Date of : 34 Report #: [id number] THIS REPORT FOR: //name// CC: Jose Luis Iqbal DATE OF SERVICE: 04/09/2018 TYPE OF REPORT: Infectious diseases consultation. REASON FOR CONSULTATION: I was asked to evaluate concerning septic shock. History taken from transfer records, pt's family and [facility] prior records. HISTORY OF PRESENT ILLNESS: The patient is an 82-year old who was recently hospitalized at [facility] after he fell on 03/06/2018 in a parking lot with extensive bruising to his face. He developed this while on Coumadin. After 48 hours in the acute care facility, he was transferred to acute rehab and stayed there from 03/08/2018-03/14/2018. He was then readmitted to the acute care hospital with respiratory failure, bilateral pulmonary infiltrates. There was question about the underlying diagnosis whether it was congestive heart failure or organizing pneumonia. There was also discussion about pulmonary contusion from his previous fall. He was on amiodarone and this was discontinued as well. His atrial fibrillation and flutter were treated. By 03/23/2018, he was then discharged to [facility] for further respiratory care and rehabilitation. Discussion with the family at the bedside notes that over the last several days, he has become more confused. He was not eating. No evidence of gross aspiration. No documented report of fever. It is noted that his urine output has dropped off last 24 hours. He developed further respiratory compromise and required intubation and transferred to acute care. In the Emergency Room, he was hypotensive with blood pressure in the 70 systolic. I discussed the case with the Emergency Room staff. He was appropriately intubated, placed on the ventilator, right IJ catheter was placed, he was given up to 3 liters of normal saline rapidly and placed on vasopressors to control blood pressure. He was transferred to the Intensive Care Unit. He is on FiO2 of 80%. He arouses to pain but does not localize nor follow commands. Skin had multiple bruises. He has had a large amount of tracheal secretions. He now has an NG tube in place with yellowish output. He has indwelling Kamara catheter now starting to cotton picker urine output. REVIEW OF SYSTEMS: Ten-point review of systems was negative other than what is described above. The patient could not give any further details. PAST MEDICAL HISTORY: Peripheral vascular disease with multiple stents, carotid artery disease, hypertension, hyperlipidemia, COPD, alcohol abuse, lumbar disk disease, BPH, vitamin D deficiency, atrial fibrillation and compression fracture [address] [address] CONSULTATION Name: MINGO PEACE Room #: 239-P [facility] IN M.R.#: [id number] Admission: 04/09/18 Attend Phys: Wilfredo Schmitz MD Discharge: Date of : 34 Report #: [id number] with vertebroplasty. ALLERGIES: None known. MEDICATIONS: As noted on his MAR, now on Zosyn, vancomycin and Levaquin. FAMILY HISTORY: Noncontributory. SOCIAL HISTORY: Past cigarette smoker. Does have alcohol use. PHYSICAL EXAMINATION: VITAL SIGNS: Currently afebrile. Pulse was 96, respiratory rate 20, blood pressure 105/42 and he is on 80% FiO2. SKIN: With multiple ecchymoses. No ulcerations. No palpable adenopathy. HEENT: Orally intubated. OG to suction. Mouth without mucositis or lesion. MUSCULOSKELETAL: He had increased muscle tone throughout. NECK: Without thyromegaly or mass. LUNGS: Coarse posteriorly, greatest in the bases. No consolidation. No rub. HEART: Regular with a 2/6 systolic murmur heard best at the apex. No gallop or rub. ABDOMEN: Soft, did not appear tender. No hepatosplenomegaly or mass appreciated. GENITOURINARY: External genitalia with indwelling Kamara catheter. No lesions or masses identified. RECTAL: Not performed. EXTREMITIES: With trace peripheral edema. NEUROLOGICAL: Arousable but not following commands. He did move all extremities. Pupils were equal, round and reactive to light. No conjunctivitis or scleral icterus. Could not assess mood. LABORATORY DATA: Sodium 149, potassium 4.5, bicarbonate of 39 and creatinine 2.0. BNP 3594. Procalcitonin 11. Hemoglobin 8.3; WBC 4.0 with 40% bands and platelet count 142,000. Urinalysis unremarkable. Blood and sputum cultures are pending. RADIOLOGICAL DATA: Chest x-ray with bilateral pulmonary infiltrates, greatest in the bases. IMPRESSION: 1. An 82-year old with septic shock associated with healthcare-associated pneumonia. 2. Respiratory failure with healthcare-associated pneumonia. Still unclear if there is an underlying pulmonary process yet to be further defined. 3. Acute kidney injury. 4. Predating delirium, now encephalopathy. 5. Underlying peripheral vascular disease and atrial fibrillation. 6. Chronic obstructive pulmonary disease. [facility] [address] [place] [address] CONSULTATION Name: MINGO PEACE Room #: 239-P ADM IN M.R.#: [id number] Admission: 04/09/18 Attend Phys: Wilfredo Schmitz MD Discharge: Date of : 34 Report #: [id number] 7. History of alcohol abuse. 8. Benign prostatic hypertrophy with urinary retention. 9. History of deep venous thrombosis, anticoagulated now. RECOMMENDATIONS: 1. Continue sepsis protocol with IV fluids and vasopressors as needed to control blood pressure. 2. Broad antibiotic coverage for healthcare-associated infection. 3. Cultures of blood and sputum. Also, check for legionella and viral respiratory panel. 4. Pulmonary Medicine to assist with acute care and ventilatory management. 5. Serial chest x-rays and laboratory. Agree with use of corticosteroids for stress. Given multisystem failure, the patient has a significant risk for mortality. I have discussed with family and nursing staff at the bedside. <ELECTRONICALLY SIGNED> By: Darwin Caceres MD 04/10/18 1839 [id number] 0215 Darwin Caceres MD /nt
--- NOTE | 2018-04-10 19:27 | HC ---
[facility] [place] [address] CONSULTATION Name: MINGO PEACE Room #: 239-P ADM IN M.R.#: [id number] Admission: 04/09/18 Attend Phys: Wilfredo Schmitz MD Discharge: Date of : 34 Report #: [id number] THIS REPORT FOR: //name// CC: Jose Luis Iqbal REFERRING PHYSICIAN: Dr. Schmitz. REASON FOR REFERRAL: Acute respiratory failure. HISTORY OF PRESENT ILLNESS: The patient is an 82-year-old white male who was brought to the Emergency Room with respiratory distress. He was subsequently intubated. He is hypotensive. A pulmonary consultation was requested. The patient was just hospitalized at [facility] in 03/2018. He was admitted following a fall. He has a history of fall. He was seen for progressive dyspnea, infiltrates. The patient was felt to have drug-induced lung disease. He had been on amiodarone. He also has a history of COPD, though the severity was unknown. He subsequently improved and was then transferred to long-term care facility for ongoing therapy. According to Dr. Archuleta, the patient was doing fairly well until the last few days he has started to deteriorate. The patient was noted to be more dyspneic. Over the past 24 hours, he was said to have no urine output. When he was seen in the Emergency Room, the patient was found to be in severe respiratory distress necessitating intubation. He was also hypotensive. Systolic blood pressure was as low as 74 mmHg. Currently, he is intubated and sedated. His systolic blood pressure is now 80 and pulse is 100. PAST MEDICAL HISTORY: Otherwise notable for recent worsening infiltrates, felt to be drug induced with a component of heart failure, he had been on amiodarone, COPD, severity unknown; chronic heart failure; moderate aortic stenosis; moderate pulmonary hypertension with a PA pressure around 45 mmHg; history of recurrent falls resulting in probable pulmonary contusion on recent hospitalization; peripheral artery disease; atrial fibrillation/flutter; history of deep venous thrombosis off anticoagulation due to falls; peripheral artery disease undergone balloon angioplasty involving the left SFA, left popliteal; peripheral arteries undergoing multiple balloon angioplasties involving both lower extremities; carotid artery disease; hypertension; hypercholesterolemia; history of alcohol abuse; 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 ALLERGIES: None to medications. CURRENT MEDICATIONS: Listed on transfer include Bystolic, aspirin, oxycodone, Percocet, Demadex, prednisone 40 mg once a day, Zosyn, Cardizem, Lipitor and clopidogrel. FAMILY HISTORY: Noncontributory. SOCIAL HISTORY: The patient has smoked cigarettes in the past as mentioned above. He continues to drink up until recently. REVIEW OF SYSTEMS: Deferred as the patient is intubated. PHYSICAL EXAMINATION: GENERAL: He is now sedated and intubated. VITAL SIGNS: Temperature is pending. Pulse is 90s, saturation 96%, initial blood pressure 74/27 mmHg and respiratory rate 20. HEENT: Normocephalic and atraumatic. He is orally intubated. NECK: Supple without lymphadenopathy or thyromegaly. He has a right IJ placed. CHEST: Breath sounds are fair. Few coarse breath sounds bilaterally. No obvious wheezes. CARDIOVASCULAR: Normal S1 and S2. No obvious murmurs or gallop. Pulses are 2+/4+ bilaterally. ABDOMEN: Soft, nontender, no organomegaly or masses felt. GENITOURINARY: Deferred. RECTAL: Deferred. EXTREMITIES: No cyanosis or clubbing. DERMATOLOGIC: Shows multiple ecchymosis throughout both upper and lower extremities. SKIN: Turgor is also felt to be poor. NEUROLOGIC: Deferred as the patient was recently sedated for intubation. LABORATORY DATA: Chest x-ray shows mild bilateral infiltrates, questionable consolidation in the left lower lobe, compared to the previous study the infiltrates seem to have improved. ET tube is approximately 2 cm above the tavon. Central line is in appropriate proximal SVC area. No evidence of pneumothorax. NG tube is not clearly visualized as the field is cut off from the stomach. Procalcitonin level is 11. BNP is 3600. Sodium 149, potassium 4.5, chloride 107, CO2 39, BUN is 55 and creatinine is 2.0. WBC 4000, hemoglobin 8.3 and platelets are normal. There are 40% bands. Arterial blood gas revealed pH 7.34, pCO2 of 63, pO2 of 261 on FiO2 100%. IMPRESSION: [facility] [address] [place] [address] CONSULTATION Name: MINGO PEACE Room #: 239-P ADM IN M.Dasia.#: [id number] Admission: 04/09/18 Attend Phys: Wilfredo Schmitz MD Discharge: Date of : 34 Report #: [id number] 1. Fbyxe-ke-gollasu hypercapnic hypoxic respiratory failure in this 82-year-old white male. His secretion was felt to be purulent through the ET tube. He has significant bandemia along with leukopenia. His procalcitonin level is elevated. He is hypotensive. Nosocomial pneumonia is suspected along with septic shock and multisystem organ failure. 2. Bilateral infiltrates. The infiltrates in fact has improved from prior x-rays. Previous chest CT shows ground glass opacities. Presume that he has pneumonia likely aspiration or other nosocomial infections. Broad spectrum antibiotic is recommended. 3. Hypotension. He is also hyponatremic and azotemic. Suspect component of volume depletion. Aggressive IV fluid replacement is recommended. 4. Recent oliguria likely due to above. We will need to monitor urine output closely. 5. Recent drug-induced interstitial lung disease. Please see prior records. The patient's previous chest CT shows ground glass opacity. Infiltrates seem to have improved while on steroids. 6. 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 7. History of heart failure. 8. Moderate aortic stenosis. Recent echocardiogram showed ejection fraction of 60%, mild diastolic dysfunction, pulmonary artery pressure around 45. 9. Progressive debility and weakness with recurrent falls and possible pulmonary contusion. 10. Atrial fibrillation/flutter. 11. Peripheral artery disease, carotid artery disease and also involving both lower extremities. 12. History of deep venous thrombosis, had been off anticoagulation due to falls. RECOMMENDATIONS: Would recommend a sepsis protocol, aggressive IV fluid intervention given the above findings, vasopressor to maintain mean arterial pressure around 60 or systolic blood pressure around 90 mmHg. We will need to monitor urine output closely. Wean O2 for saturation 90%. We will obtain cultures including sputum, blood and urine. Would also recommend corticosteroids in the form of hydrocortisone given profound hypotension. DVT and GI prophylaxis recommended. Thank you for this consultation. Critical care 1 hour. <ELECTRONICALLY SIGNED> By: Arash Wylie MD 04/10/18 [id number] 0050 Arash Wylie MD /nt
--- NOTE | 2018-04-10 21:15 | NUR ---
GCS 10. WHEN SEDATION DECREASED, PT OPENS EYES TO VOICE AND FOLLOWS SIMPLES COMMANDS. WEAK IN ALL EXTREMITIES. BUE RESTRAINTS. SINUS RHYTHM ON MONITOR. +1 RADIAL AND PEDAL PULSES. NONPITTING EDEMA TO BILATERAL HANDS. MAINTAINING MAP > 65 WITH LEVOPHED, VASOPRESSIN, AND NEOSYNEPHRINE. LUNGS COARSE AND DIMINISHED TO AUSCULTATION. SMALL VOLUME SHARP SPUTUM. SUCTION PRN. VENT SETTINGS FOLLOWS: AC 16, TV 500, PEEP 5, FIO2 30%. HAYES TO DD. MONITORING HOURLY URINE OUTPUT. VITAL SIGNS AND ASSESSMENTS DOCUMENTED. WILL CONTINUE TO MONITOR.
[2018-04-11] VITALS (52 sets, daily range): BP systolic 84–155; BP diastolic 31–57
[2018-04-11 03:32] LABS: HEMATOCRIT 22.1 % (42.0-52.0); HEMOGLOBIN 7.3 gm/dL (14.0-18.0); MCH 32.1 pg (26.0-34.0); MCHC 33.1 g/dL (28.0-37.0); MCV 96.9 fL (80.0-100.0); RBC 2.28 mil/uL (4.50-6.00); RDW 19.2 % (10.5-14.5)
[2018-04-11 03:34] LABS: WBC 9.6 thou/uL (4.0-11.0)
[2018-04-11 03:35] LABS: CALCIUM 6.4 mg/dL (8.5-10.1); CREATININE 1.3 mg/dL (0.7-1.3); POTASSIUM 3.1 mmol/L (3.5-5.1)
--- NOTE | 2018-04-11 08:00 | NUR ---
ASSESSMENT COMPLETED AT SHIFT CHANGE, SEE ASSESSMENT FOR DETAILS. PERFORMED SEDATION VACATION WITH PT WEAKLY SQUEEZING R HAND, WIGGLING R TOES, OPENS EYES TO PAINFUL STIMULI, PUPILS 4- BRISK, PERRLA, SR/SB, FIRST TITRATING NEOSYNEPHRINE OFF, LEVOPHED 30 MCG/MIN AND VASOPRESSIN 0.04 UNITS/MIN TO KEEP MAP>95. TOLERATING VENT- DURING SEDATION VACATION HAS SLIGHT WEAK COUGH, SUCTIONING SHARP SECRETIONS. NG PATENT WITH BILE GREEN DRAINAGE, HAYES WITH ADEQUATE DK URINE OUTPUT. FAMILY PRESENT PROVIDING SUPPORT.
--- NOTE | 2018-04-11 09:19 | NUR ---
NPO x 2 days. If aggressive nutrition care to start, recommend tube feed of vital AF 1.2 at 20ml/hr and progress to goal 50ml/hr.
--- NOTE | 2018-04-11 13:05 | NUR ---
DR. JIMENEZ AND DR. PARISI PRESENT TO SEE PT.
--- NOTE | 2018-04-11 13:46 | NUR ---
CM ASSESSMENT: CASE OPENED FOR DC PLANNING. PT ADMITS FROM [facility] AFTER HOSPITALIZATION AT [facility]. ADMIT WITH SEVERE SEPSIS, INTUBATED AND ON MAX PRESSORS. PT'S DTR ELIAS IS DPOA. DISCUSSED WITH DR. JIMENEZ WHO INDICATES DR. PARISI MET WITH FAMILY AND PT IS DNR AND PLAN TO WITHDRAW CARE. FLAKITA FROM [facility] ADMISSIONS UPDATED.
--- NOTE | 2018-04-11 17:40 | NUR ---
DECREASED IV VASOACTIVE GTT'S BY 50%. FAMILY REMAINS AT BEDSIDE.
--- NOTE | 2018-04-11 17:50 | NUR ---
NG REMOVED, WELL TOLERATED. MIKE, RESP THERAPIST PRESENT. PT EXTUBATED THEN PLACED ON 02 NC. MORPHINE GTT INCREASED TO 6MG/HR FOR AIR HUNGER. FAMILY AT BEDSIDE PROVIDING SUPPORT TO PT.
--- NOTE | 2018-04-11 18:22 | NUR ---
FAMILY AT BEDSIDE PROVIDING VERY SUPPORTIVE ENVIRONMENT FOR PT. PT NOT VERBALLY RESPONSIVE, SINUS JOHANNA DECREASING DOWN TO 20'S THEN ASYSTOLE, NO BREATHING, NO BLOOD PRESSURE, PUPILS FIXED AND DILATED. SEE NURSING SUMMARY WORKSHEET, DONOR REFERRRAL NOTIFICATION AND EVALUATION FORM FOR [employer] AND BODY RELEASE FORM. HOME OBTAINED. PT PLACED IN BODY BAG AND SECURITY NOTIFIED PT READY TO BE RELEASED TO [facility] OR TO HOME.
--- NOTE | 2018-04-11 20:46 | NUR ---
2009: NOTIFIED SIGNATURE HOME ABOUT BODY. THE STAFF WILL BE HERE SHORTLY. 2044: BODY TRANSFERED TO HOME WITH STAFF.
[2018-04-14 02:06] LABS: ADENOVIRUS Negative (Negative); INFLUENZA B Negative (Negative); METAPNEUMOVIRUS Negative (Negative); PARAINFLUENZA 1 Negative (Negative); PARAINFLUENZA 3 Negative (Negative); RSV A Negative (Negative); RSV B Negative (Negative)
== END 2018-04-11 18:22 | DRG 871 ==
LOC: ER 16:29 → EROBS 18:14 → ICU 20:02
PROVIDERS: Emergency Medicine; Internal Medicine; Specialist; ADMIT Internal Medicine Geriatric Medicine
PROC: 5A1945Z Respiratory Ventilation, 24-96 Consecutive Hours (ICD-10-PCS; principal; 2018-04-09)
PROC: 0BH17EZ Insertion of Endotracheal Airway into Trachea, Via Natural or Artificial Opening (ICD-10-PCS; principal; 2018-04-09)
DX: A41.9 Sepsis, unspecified organism (principal); R65.21 Severe sepsis with septic shock; J18.9 Pneumonia, unspecified organism; J96.21 Acute and chronic respiratory failure with hypoxia; J96.22 Acute and chronic respiratory failure with hypercapnia; I48.92 Unspecified atrial flutter; N17.9 Acute kidney failure, unspecified; G93.40 Encephalopathy, unspecified; I50.22 Chronic systolic (congestive) heart failure; J44.0 Chronic obstructive pulmonary disease with (acute) lower respiratory infection; E78.00 Pure hypercholesterolemia, unspecified; M51.36 Other intervertebral disc degeneration, lumbar region; I11.0 Hypertensive heart disease with heart failure; I48.91 Unspecified atrial fibrillation; G89.29 Other chronic pain; M54.9 Dorsalgia, unspecified; I27.20 Pulmonary hypertension, unspecified; I73.9 Peripheral vascular disease, unspecified; I25.10 Atherosclerotic heart disease of native coronary artery without angina pectoris; I95.9 Hypotension, unspecified; I35.0 Nonrheumatic aortic (valve) stenosis; I65.29 Occlusion and stenosis of unspecified carotid artery; R41.0 Disorientation, unspecified; N40.1 Benign prostatic hyperplasia with lower urinary tract symptoms; R33.8 Other retention of urine; D63.8 Anemia in other chronic diseases classified elsewhere; L13.9 Bullous disorder, unspecified; Z66 Do not resuscitate; Z87.81 Personal history of (healed) traumatic fracture; Z95.820 Peripheral vascular angioplasty status with implants and grafts; Z87.891 Personal history of nicotine dependence; Z86.718 Personal history of other venous thrombosis and embolism; Z79.899 Other long term (current) drug therapy
CPT/HCPCS: 10078